=== PATIENT | female | born 1975 | race Hispanic/Latino ===

== ENCOUNTER 2018-07-10 18:22 | Emergency (ER) | payer BC, OTHER ==
--- NOTE | 2018-07-10 19:33 | RAD REPORT ---
EXAM DESCRIPTION: RAD - Chest Pa And Lat (2 Views) - 07/10/2018 7:27 pm CLINICAL HISTORY: Chest pain, chest tightness COMPARISON: None. TECHNIQUE: PA and lateral views of the chest were obtained. FINDINGS: The lungs are clear. Heart size is normal and central vasculature is within normal limit s. No pleural effusion or pneumothorax seen. No acute bony finding noted. No aortic abnormality. IMPRESSION: No acute cardiopulmonary process.
[2018-07-10 20:21] LABS: ALT/SGPT 40 U/L (12-78); AST/SGOT 16 U/L (15-37); Albumin 3.6 g/dL (3.4-5.0); Alkaline Phosphatase 75 U/L (45-117); BUN Blood Urea Nitrogen 11 mg/dL (7-18); Bicarbonate 22 mmol/L (21-32); Bilirubin Direct < 0.1 mg/dL (0-0.2); Bilirubin Total 0.3 mg/dL (0.2-1.0); Glucose Level 110 mg/dL (74-106); Magnesium 2.4 mg/dL (1.8-2.4); NT PRO-BNP 52 pg/mL (<125); Potassium 3.6 mmol/L (3.5-5.1); Protein, Total 8.1 g/dL (6.4-8.2); Sodium Level 145 mmol/L (136-145); Troponin (Emerg Dept Use Only) < 0.02 ng/mL (0.0-0.045)
[2018-07-10 20:30] LABS: Absolute Lymphocytes (CBC) 1.4 K/uL (0.7-4.9); Absolute Monocytes 0.3 K/uL (0.1-1.3); Absolute Neutrophil 4.1 K/uL (1.8-8.0); Basophils % 0.5 % (0-1.3); Eosinophils % 0.6 % (0-4.4); Hematocrit 35.5 % (36.0-45.0); Lymphocytes % 24.2 % (15.3-44.8); MCH 23.5 pg (27.0-35.0); MCV 74.3 fL (80-100); MPV 8.7 fL (7.6-11.3); Monocytes % 5.2 % (3.3-12.3); RBC Red Blood Cell Count 4.77 M/uL (3.86-4.86)
[2018-07-10 20:32] LABS: Protime INR 1.07
[2018-07-10 22:55] LABS: Urine Blood 3+ (NEG); Urine Glucose NEGATIVE (NEG); Urine Protein NEGATIVE (NEG); Urine Specific Gravity 1.015 (1.005-1.030); Urine pH 7.5 (5.0-7.0)
--- NOTE | 2018-07-10 23:49 | ER ---
Nurse's Notes [facility] Name: Mary Ibarra Age: 42 yrs Sex: Female : 1975 Arrival Date: 07/10/2018 Time: 18:24 Bed 18 Private MD: Diagnosis: Dyspnea;Syncope and collapse Presentation: 07/10 18:31 Presenting complaint: EMS states: called out for chest tightness and shortness of em breath that started about an hour ago, denies nausea/vomiting/pain/ fever, received a blood transfusion on Wednesday, HGB 7.6. Transition of care: patient was not received from another setting of care. Onset of symptoms was July 10, 2018. Risk Assessment: Do you want to hurt yourself or someone else? Patient reports no desire to harm self or others. Initial Sepsis Screen: Does the patient meet any 2 criteria? No. Patient's initial sepsis screen is negative. Does the patient have a suspected source of infection? No. Patient's initial sepsis screen is negative. Care prior to arrival: None. 18:31 Method Of Arrival: EMS: [facility] em 18:47 Acuity: BIB 3 la1 Triage Assessment: 18:34 General: Appears uncomfortable, Behavior is cooperative, anxious. Pain: Complains of em pain in mid-sternal area Pain does not radiate. 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 - Social history:: Smoking status: Patient/guardian denies using tobacco. - Ebola Screening: : Patient negative for fever greater than or equal to 101.5 degrees Fahrenheit, and additional compatible Ebola Virus Disease symptoms Patient denies exposure to infectious person Patient denies travel to an Ebola-affected area in the 21 days before illness onset No symptoms or risks identified at this time. Screenin:37 Abuse screen: Denies threats or abuse. Nutritional screening: No deficits noted. em Tuberculosis screening: No symptoms or risk factors identified. Fall Risk None identified. Assessment: 18:26 General: Appears in no apparent distress. uncomfortable, Behavior is calm, anxious. em Pain: Denies pain. Neuro: Level of Consciousness is awake, alert, obeys commands, Oriented to person, place, time, situation. Cardiovascular: Reports shortness of breath, tightness Denies chest pain, nausea, vomiting, Heart tones S1 S2 present Capillary refill < 3 seconds Patient's skin is warm and dry. Rhythm is sinus rhythm. Respiratory: Reports shortness of breath on exertion Airway is patent Respiratory effort is even, unlabored, Respiratory pattern is regular, symmetrical, Breath sounds are clear bilaterally. GI: Abdomen is flat. : No signs and/or symptoms were reported regarding the genitourinary system. EENT: No signs and/or symptoms were reported regarding the EENT system. Derm: Skin is intact, is healthy with good turgor, Skin is dry, Skin is pale. Musculoskeletal: Range of motion: intact in all extremities. 18:30 Reassessment: I agree with previous assessment. hb 19:45 Reassessment: Patient appears in no apparent distress at this time. General: Appears in lp1 no apparent distress. comfortable. Pain: Denies pain. Neuro: Level of Consciousness is awake, alert, obeys commands. Respiratory: Respiratory effort is even, unlabored. Derm: Skin is intact, Skin is dry, Skin is normal. 21:00 Reassessment: Patient appears in no apparent distress at this time. Patient and/or lp1 family updated on plan of care and expected duration. Pain level reassessed. Patient is alert, oriented x 3, equal unlabored respirations, skin warm/dry/pink. 22:00 Reassessment: Patient appears in no apparent distress at this time. No changes from lp1 previously documented assessment. Patient and/or family updated on plan of care and expected duration. Pain level reassessed. 23:00 Reassessment: Patient appears in no apparent distress at this time. Patient is alert, lp1 oriented x 3, equal unlabored respirations, skin warm/dry/pink. Patient states feeling better. Patient states symptoms have improved. Vital Signs: 18:35 BP 108 / 70; Pulse 71; Resp 18; Pulse Ox 100% on R/A; Weight 67.13 kg; Height 5 ft. 0 em in. (152.40 cm); Pain 0/10; 18:36 Temp 98.6(O); em 19:30 BP 107 / 65; Pulse 78; Resp 20; Pulse Ox 99% on R/A; lp1 21:30 BP 107 / 71; Pulse 72; Resp 18; Pulse Ox 99% on R/A; lp1 23:30 BP 104 / 77; Pulse 74; Resp 16; Pulse Ox 100% on R/A; lp1 18:35 Body Mass Index 28.90 (67.13 kg, 152.40 cm) em ED Course: 18:24 Patient arrived in ED. as 18:25 Maria Victoria Fong FNP-C is PHCP. kb 18:25 Cm Reyes MD is Attending Physician. kb 18:27 Erich Tan LVN is Primary Nurse. em 18:35 Arm band placed on. em 18:37 Patient has correct armband on for positive identification. Placed in gown. Bed in low em position. Call light in reach. Side rails up X2. Adult w/ patient. 18:45 EKG done, by ED staff, reviewed by Maria Victoria GUTIERREZ. dh3 18:47 Triage completed. la1 19:05 X-ray completed. Patient tolerated procedure well. la2 19:51 Inserted saline lock: 20 gauge in right antecubital area, using aseptic technique. lp1 Blood collected. By JAGJIT Jung. 20:40 Notified Nurse Practitioner and/or Physician Fireworks Assembly Supervisor of a critical lab result(s), lp1 D-Dimer 969. 22:18 PHCP role handed off by Maria Victoria Fong FNP-C [facility] 22:18 Paulino Dillon PA is PHCP. [facility] 23:30 No provider procedures requiring assistance completed. lp1 07/11 00:10 IV discontinued, No redness/swelling at site. Pressure dressing applied. lp1 Administered Medications: No medications were administered Outcome: 07/10 23:48 Discharge ordered by . [facility] 07/11 00:10 Discharged to home ambulatory, with significant other. lp1 Condition: good Discharge instructions given to patient, Instructed on discharge instructions, follow up and referral plans. Demonstrated understanding of instructions, follow-up care. 00:10 Patient left the ED. lp1 Signatures: Maria Victoria Fong FNP-C FNP-Ckb Mickail, Joel, PA PA [facility] Tan, Erich, HOSPICE SOCIAL WORKER Mary Lou Pulliam Laura, RN RN lp1 Med Stephens RN RN la1 Tammy Ward RN RN Melly Nunes [facility] Izzy Ames
--- NOTE | 2018-07-10 23:49 | EDPHYS ---
Physician Documentation [facility] Name: Mary Ibarra Age: 42 yrs Sex: Female : 1975 Arrival Date: 07/10/2018 Time: 18:24 Bed 18 Private MD: ED Physician Cm Reyes HPI: 07/10 22:12 This 42 yrs old Female presents to ER via EMS with complaints of Shortness Of kb Breath. 22:12 The patient has shortness of breath at rest. Onset: The symptoms/episode began/occurred kb just prior to arrival. Duration: The symptoms are continuous. The patient's shortness of breath has no apparent modifying factors. Associated signs and symptoms: Pertinent positives: This patient does not have any pertinent positive signs or symptoms associated with shortness of breath. Severity of symptoms: At their worst the symptoms were mild moderate in the emergency department the symptoms are unchanged. The patient has not experienced similar symptoms in the past. The patient has been recently seen by a physician:. 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 States it feels tight when she's trying to take a breath in, like her lungs can't expand. Denies any other symptoms. Reports blood transfusion on Wednesday due to vaginal bleeding from fibroids. . STUDIO GRIP: 18:35 LMP 07/10/2018 em Historical: - Allergies: 18:34 Vicodin; em 18:34 Codeine; em 18:34 Diflucan; em - PMHx: 18:34 Lupus; Anemia; em - PSHx: 18:34 Cholecystectomy; ; em - Immunization history:: Last tetanus immunization: not immunized. - Social history:: Smoking status: Patient/guardian denies using tobacco. - Ebola Screening: : Patient negative for fever greater than or equal to 101.5 degrees Fahrenheit, and additional compatible Ebola Virus Disease symptoms Patient denies exposure to infectious person Patient denies travel to an Ebola-affected area in the 21 days before illness onset No symptoms or risks identified at this time. ROS: 22:12 Constitutional: Negative for fever, chills, and weight loss, ENT: Negative for injury, kb pain, and discharge, Neck: Negative for injury, pain, and swelling, Cardiovascular: Negative for chest pain, palpitations, and edema, Abdomen/GI: Negative for abdominal pain, nausea, vomiting, diarrhea, and constipation, Back: Negative for injury and pain, : Negative for injury, bleeding, discharge, and swelling, MS/Extremity: Negative for injury and deformity, Skin: Negative for injury, rash, and discoloration, Neuro: Negative for headache, weakness, numbness, tingling, and seizure. 22:12 Respiratory: Positive for shortness of breath, Negative for cough, dyspnea on exertion, hemoptysis, orthopnea, pleurisy, sputum production, wheezing. Exam: 22:12 Constitutional: This is a well developed, well nourished patient who is awake, alert, kb and in no acute distress. Head/Face: Normocephalic, atraumatic. ENT: Nares patent. No nasal discharge, no septal abnormalities noted. Tympanic membranes are normal and external auditory canals are clear. Oropharynx with no redness, swelling, or masses, exudates, or evidence of obstruction, uvula midline. Mucous membranes moist. Neck: Trachea midline, no thyromegaly or masses palpated, and no cervical lymphadenopathy. Supple, full range of motion without nuchal rigidity, or vertebral point tenderness. No Meningismus. Chest/axilla: Normal chest wall appearance and motion. Nontender with no deformity. No lesions are appreciated. Cardiovascular: Regular rate and rhythm with a normal S1 and S2. No gallops, murmurs, or rubs. Normal PMI, no JVD. No pulse deficits. Respiratory: Lungs have equal breath sounds bilaterally, clear to auscultation and percussion. No rales, rhonchi or wheezes noted. No increased work of breathing, no retractions or nasal flaring. Abdomen/GI: Soft, non-tender, with normal bowel sounds. No distension or tympany. No guarding or rebound. No evidence of tenderness throughout. Back: No spinal tenderness. No costovertebral tenderness. Full range of motion. Skin: Warm, dry with normal turgor. Normal color with no rashes, no lesions, and no evidence of cellulitis. MS/ Extremity: Pulses equal, no cyanosis. Neurovascular intact. Full, normal range of motion. Neuro: Awake and alert, GCS 15, oriented to person, place, time, and situation. Cranial nerves II-XII grossly intact. Motor strength 5/5 in all extremities. Sensory grossly intact. Cerebellar exam normal. Normal gait. Vital Signs: 18:35 BP 108 / 70; Pulse 71; Resp 18; Pulse Ox 100% on R/A; Weight 67.13 kg; Height 5 ft. 0 em in. (152.40 cm); Pain 0/10; 18:36 Temp 98.6(O); em 19:30 BP 107 / 65; Pulse 78; Resp 20; Pulse Ox 99% on R/A; lp1 21:30 BP 107 / 71; Pulse 72; Resp 18; Pulse Ox 99% on R/A; lp1 23:30 BP 104 / 77; Pulse 74; Resp 16; Pulse Ox 100% on R/A; lp1 18:35 Body Mass Index 28.90 (67.13 kg, 152.40 cm) em MDM: 18:25 Patient medically screened. [facility] 18:29 Data reviewed: vital signs, nurses notes. kb 22:12 Data interpreted: Pulse oximetry: on room air is 99 %. Interpretation: normal. kb 22:15 ED course: Pt feeling better at this time. No resp distress noted. Awaiting CT results. kb 07/10 18:27 Order name: Basic Metabolic Panel; Complete Time: 20:23 kb 07/10 18:27 Order name: CBC with Diff; Complete Time: 20:33 kb 07/10 18:27 Order name: LFT's; Complete Time: 20:23 kb 07/10 18:27 Order name: Magnesium; Complete Time: 20:23 kb 07/10 18:27 Order name: NT PRO-BNP; Complete Time: 20:23 kb 07/10 18:27 Order name: PT-INR; Complete Time: 20:40 kb 07/10 18:27 Order name: Troponin (emerg Dept Use Only); Complete Time: 20:23 kb 07/10 20:40 Order name: D-Dimer; Complete Time: 20:40 EDMS 07/10 21:33 Order name: Urine Dipstick--Ancillary (enter results) em1 07/10 21:33 Order name: Urine --Ancillary (enter results) em1 07/10 22:55 Order name: Urine --Ancillary; Complete Time: 23:24 EDMS 07/10 22:55 Order name: Urine Dipstick-Ancillary; Complete Time: 23:24 EDMS 07/10 18:27 Order name: EKG; Complete Time: 19:36 kb 07/10 18:27 Order name: Cardiac monitoring; Complete Time: 19:03 kb 07/10 18:27 Order name: EKG - Nurse/Tech; Complete Time: 19:02 kb 07/10 18:27 Order name: IV Saline Lock; Complete Time: 19:53 kb 07/10 18:27 Order name: Labs collected and sent; Complete Time: 19:53 kb 07/10 18:27 Order name: O2 Per Protocol; Complete Time: 19:53 kb 07/10 18:27 Order name: O2 Sat Monitoring; Complete Time: 19:53 kb 07/10 19:34 Order name: RAD; Complete Time: 19:37 EDOR 07/10 20:41 Order name: CT Chest For PE Angio kb Administered Medications: No medications were administered Disposition: 07/11 07:42 Co-signature as Attending Physician, Cm Reyes MD I agree with the assessment and иван plan of care. Disposition: 07/10/18 23:48 Discharged to Home. Impression: Dyspnea, Syncope and collapse. - Condition is Stable. - Discharge Instructions: Near-Syncope, Shortness of Breath. - Medication Reconciliation Form, Thank You Letter, Antibiotic Education, Prescription Opioid Use form. - Follow up: Private Physician; When: 2 - 3 days; Reason: Recheck today's complaints, Continuance of care, Re-evaluation by your physician. - Notes: Please follow up with cardiology for further evaluation. Please return to the ED if you develop worsening shortness of breath, chest pain or any other concerning symptoms. Signatures: Dispatcher [employer] [facility] Maria Victoria Fong, COMPLAINT EVALUATION OFFICER-C COMPLAINT EVALUATION OFFICER-Ckb Cm Reyes MD MD cha Mickail, Joel PA PA tutum Erich Tan, CHEF DE FROID CHEF DE FROID Radha Smiley, RN RN lp1 Corrections: (The following items were deleted from the chart) 07/10 19:56 19:36 Chest Pa And Lat (2 Views)+RAD.RAD.BRZ ordered. 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 Denies any other symptoms. kb Reports blood transfusion on Wednesday due to vaginal bleeding from fibroids. . kb 07/11 00:10 07/10 23:48 07/10/2018 23:48 Discharged to Home. Impression: Dyspnea; Syncope and lp1 collapse. Condition is Stable. Forms are Medication Reconciliation Form, Thank You Letter, Antibiotic Education, Prescription Opioid Use. Follow up: Private Physician; When: 2 - 3 days; Reason: Recheck today's complaints, Continuance of care, Re-evaluation by your physician. rocio
--- NOTE | 2018-07-11 07:39 | EKG ---
Test Date: 2018-07-10 Test Time: 18:47:36 Stripper And Printer: JEROMY MEASUREMENT RESULTS: Intervals: Rate: 74 IL: 124 QRSD: 72 QT: 396 QTc: 439 Eugene: P: 31 IL: 124 QRS: 57 T: 49 INTERPRETIVE STATEMENTS: Normal sinus rhythm Normal ECG No previous ECG available for comparison Electronically Signed On 07-11-18 07:38:36 [employer] by Torsten Webb
--- NOTE | 2018-07-11 07:49 | RAD REPORT ---
EXAM DESCRIPTION: CT - Chest For Pe Angio - 07/10/2018 10:13 pm CLINICAL HISTORY: Chest pain and shortness of breath COMPARISON: None. TECHNIQUE: Dynamically enhanced axial 3 mm thick images of the chest were obtained during administra tion of <100> mL Isovue 370 IV contrast. Coronal and oblique reconstruction images were generated and reviewed. Exam utilizes a protocol for optimal evaluation of pulmonary arterial tree. Maximum intensity projections 3D imaging was utilized All CT scans are performed using dose optimization technique as appropriate and may include automated exposure control or mA/KV adjustment according to patient size. FINDINGS: A pulmonary embolus is not seen. A thoracic aortic aneurysm is not noted. A pleural effusion is not seen. A pericardial effusion is not seen. A lung consolidation is not present. IMPRESSION: Negative for a pulmonary embolism.
== END 2018-07-11 00:10 | disposition home or self-care (01) ==
LOC: ER 18:22
DX: R55 Syncope and collapse (principal); Z88.5 Allergy status to narcotic agent; Z88.8 Allergy status to other drugs, medicaments and biological substances
CPT/HCPCS: 36415; 71046; 71275; 80048; 80076; 81003; 81025; 83735; 83880; 84484; 85025; 85379; 85610; 93005; 99284; Q9967

== ENCOUNTER 2020-05-21 14:03 | Emergency (ER) | payer BC ==
--- OUTSIDE RECORDS SUMMARY | 2020-05-21 14:20 | XMS REPORT | Summary of Care ---
:1975 Author Organization [facility] Address [address] [place] [id number] Care Team Providers Name Role Phone Pcp, Patient Does Not Have A Primary Care Provider +1-000-00 0-0000 Reason for Visit Reason Comments Results Encounter Details Date Type Department Care Team Description 04/24/2020 Telephone [facility] Family Medicine Provider, [facility] Urgent Results - [address] [place] [address] Allergies Active Allergy Reactions Severity Noted Date Comments Codeine Nausea and/or Vomiting 03/05/2018 Hydrocodone-Acetaminophen Hallucinations 03/05/2018 documented as of this encounter (statuses as of 04/25/2020) Medications Medication Sig Dispensed Refills Start End Status Date Date mirabegron (MYRBETRIQ) Myrbetriq 25 mg tablet,extended release 0 Active 25 mg tablet Take 1 tablet every day by oral route. cholestyramine 4 gram 0 Active powder 0 hydrOXYchloroQUINE 200 hydroxychloroquine 200 0 03/09 Active mg tablet mg tablet 0 metoclopramide HCl Take 1 tablet by mouth 32 tablet 0 04/19/20 2 Active (REGLAN) 10 mg every 6 (six) hours as 0 02 0 tabletIndications: needed for Nausea and Nausea Vomiting (N/V) for up to 10 days. documented as of this encounter (statuses as of 04/25/2020) Active Problems No known active problemsdocumented as of this encounter (statuses as of 04/25/2020) Social History Tobacco Use Types Packs/Day Years Used Date Never Smoker Smokeless Tobacco: Never Used Sex Assigned at Date Recorded Not on file COVID-19 Exposure Response Date Recorded In the last month, have you been in contact with No / Unsure 04/19/2020 8:31 AM CDT someone who was confirmed or suspected to have Coronavirus / COVID-19? documented as of this encounter Last Filed Vital Signs Not on filedocumented in this encounter Miscellaneous Notes Telephone Encounter - Ariella Ferrer RN - 04/25/2020 3:28 PM CDTSpoke with patient Mary Ibarra DOB verified 1975. States that she called back yesterday because she received a message from a nurse regarding lab results. Pt informed of notes made by MOON Norris on 04/19/2020 4:51 PM " to let patient know, in addition to her UTI, her K+ is slightly elevated, force fluids and repeat within 1 week ". Patient reports that she already followed up with her Educational Administration Teacher. Patient also notified that she can follow up with PCP and to repeat the electrolytes, ifany chest pains or cardiac symptoms, go to the ER and the ULTRASONIC SOLDERER has sent antibiotics to her pharmacy. 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 elephone Encounter - Mary Alvarez - 04/24/2020 11:23 AM CDTPatient is returning a call regarding her lab results and is requesting a call back. documented in this encounter Plan of Treatment Health Maintenance Due Date Last Done Comments PNEUMOCOCCAL 0-64 YEARS COMBINED SERIES (1 1982 of 3 - PCV13) Depression Screening 1988 DTaP,Tdap,and Td Vaccines (1 - Tdap) 1995 PAP SMEAR 1997 Breast Cancer Screening (MAMMOGRAM) 2016 INFLUENZA VACCINE (#1) 2020 06/09/2019, 07/05/2017 documented as of this encounter Results Not on filedocumented in this encounter Insurance Payer Benefit Plan Subscriber ID Effective Dates Phone Address Type / Group BCBS OF [facility] [id number] 2019-Tiffanie [phone] [address] PPO/POS [place] [id number] [place] [address] CIGNA CIGNA GENERIC [id number] 2019-Tiffanie HMO/PPO/P t OS documented as of this encounter
--- OUTSIDE RECORDS SUMMARY | 2020-05-21 14:20 | XMS REPORT | Summary of Care ---
:1975 Author Organization [facility] Address [address] [place] [id number] Care Team Providers Name Role Phone Pcp, Patient Does Not Have A Primary Care Provider +1-000-00 0-0000 Reason for Visit Reason Comments LAB WORK Encounter Details Date Type Department Care Team Description 04/19/2020 Php Website Developer Visit [facility] Joanna Paiz, RUBBER ENGRAVER [address] [place] [phone] Laboratory Medicine - [facility], [facility] Fam Pob I examination ordered [address] [place] [address] as part [place] examination [id number] Allergies Active Allergy Reactions Severity Noted Date Comments Codeine Nausea and/or Vomiting 03/05/2018 Hydrocodone-Acetaminophen Hallucinations 03/05/2018 documented as of this encounter (statuses as of 04/19/2020) Medications Medication Sig Dispensed Refills Start End [...] as of this encounter (statuses as of 04/19/2020) Active Problems No known active problemsdocumented as of this encounter (statuses as of 04/19/2020) Social History Tobacco Use Types Packs/Day Years [...] Signs Not on filedocumented in this encounter Nursing Notes Hillary Iverson - 04/19/2020 9:10 AM CDT Venipuncture collection performed by clean technique on the left anticubitus. Total of 1 attempts were made. Slight pressure and a bandage/dressing were applied to the site(s). The patient experienced no complications. The following specimens were processed according to instructions and sent to [facility] laboratories per lab order on today: LT BLUE SST 1 RED LAV 1 PPT DK GREEN (LiHep) DK GREEN (SodH) SALGUERO DK BLUE (K2) DK BLUE (S) ACD Blood Culture NIPT/NTD Patient has been identified by and name and was provided with cup, antiseptic towelette, and clean catch instructions. 3 urine specimen(s) sent. Unpreserved 2 Urine Culture 1 Aptima tube Other urine documented in this encounter Plan of Treatment Date Type Specialty Care Team Description 04/19/2020 Hospital Encounter Radiology Laura Paiz, RUBBER ENGRAVER [address] [phone] Health Maintenance Due Date Last Done Comments PNEUMOCOCCAL 0-64 YEARS COMBINED SERIES (1 of 3 - 1982 PCV13) Depression Screening 1988 DTaP,Tdap,and Td Vaccines (1 - Tdap) 1995 PAP SMEAR 1997 Breast Cancer Screening (MAMMOGRAM) 2016 INFLUENZA VACCINE (#1) 2020 documented as of this encounter Results Not on filedocumented in this encounter Visit Diagnoses Diagnosis Laboratory examination ordered as part o f a routine general medical examination documented in this encounter Insurance Payer Benefit Plan Subscriber ID Effective Dates Phone Address Type / Group BCBS OF [facility] [id number] 2019-Tiffanie [phone] [address] PPO/POS [place] t [id number] [place] [address] CIGNA CIGNA GENERIC [id number] 2019-Tiffanie HMO/PPO/P t OS documented as of this encounter
--- OUTSIDE RECORDS SUMMARY | 2020-05-21 14:20 | XMS REPORT | Summary of Care ---
:1975 Author Organization [facility] - Health Address [address] [place] [address] Care Team Providers Name Role Phone Pcp, Patient Does Not Have A Primary Care Provider +[id number] 0-0000 Encounter Details Date Type Department Care Team Description 04/19/2020 Orders Only [facility] Doctor Unassigned, No [address] [place] [address] [address] [place] [address] Allergies Active Allergy Reactions Severity Noted Date Comments Codeine Nausea and/or Vomiting 03/05/2018 Hydrocodone-Acetaminophen Hallucinations 03/05/2018 documented as of this encounter (statuses as of 04/19/2020) Medications No known medicationsdocumented as of this encounter (statuses as of 04/19/2020) Active Problems Not on filedocumented as of this encounter (statuses as of 04/19/2020) Social History Tobacco Use Types Packs/Day Years Used Date Never Assessed Sex Assigned at Date Recorded Not on file documented as of this encounter Last Filed Vital Signs Not on filedocumented in this encounter Plan of Treatment Date Type Specialty Care Team Description 04/19/2020 Urgent Care Family Medicine Natalie Paiz FNP [address] [place] [phone] Provider, [facility] Health Maintenance Due Date Last Done Comments Depression Screening 1988 DTaP,Tdap,and Td Vaccines (1 - 1995 Tdap) PAP SMEAR 1997 Breast Cancer Screening 2016 (MAMMOGRAM) INFLUENZA VACCINE (#1) 2020 PNEUMOCOCCAL 0-64 YEARS COMBINED Aged Out No longer eligible based on SERIES patient's age to complete this topic documented as of this encounter Procedures Procedure Name Priority Date/Time Associated Diagnosis Comme nts ASSIGNMENT OF BENEFITS Routine 04/19/2020 8:30 AM CDT documented in this encounter Results Not on filedocumented in this encounter Insurance Payer Benefit Plan Subscriber ID Effective Dates Phone Address Type / Group BCBS OF BCBS [facility] [id number] 2019-Tiffanie [phone] [address] PPO/POS [facility] [id number] [place] [address] documented as of this encounter
--- OUTSIDE RECORDS SUMMARY | 2020-05-21 14:20 | XMS REPORT | Summary of Care ---
:1975 Author Organization [facility] - [facility] Address [address] [place] [id number] Care Team Providers Name Role Phone Pcp, Patient Does Not Have A Primary Care Provider +[id number] 0-0000 Reason for Visit Reason Comments Exposure LAB Encounter Details Date Type Department Care Team Description 05/08/2020 Laboratory Only [facility] Family Laura Paiz, MEDICAL INSTRUMENT CABLE FABRICATOR [address] [place] [address] Exposure to Medicine - [facility], Adc Fam Pob I SARS-associated [address] [place] [address] coronaviru s ([address] Drive Dx) [place] [address] Allergies Active Allergy Reactions Severity Noted Date Comments Codeine Nausea and/or Vomiting 03/05/2018 Hydrocodone-Acetaminophen Hallucinations 03/05/2018 documented as of this encounter (statuses as of 05/08/2020) Medications Medication Sig Dispensed Refills Start End Status Date Date mirabegron (MYRBETRIQ) Myrbetriq 25 mg tablet,extended release 0 Active 25 mg tablet Take 1 tablet every day by oral route. cholestyramine 4 gram 0 Active powder 0 hydrOXYchloroQUINE 200 hydroxychloroquine 200 0 03/09 Active mg tablet mg tablet 0 documented as of this encounter (statuses as of 05/08/2020) Active Problems No known active problemsdocumented as of this encounter (statuses as of 05/08/2020) Social History Tobacco Use Types Packs/Day Years Used Date Never Smoker Smokeless Tobacco: Never Used Sex Assigned at Date Recorded Not on file COVID-19 Exposure Response Date Recorded In the last month, have you been in contact with Yes 05/08/2020 10:08 AM CDT someone who was confirmed or suspected to have Coronavirus / COVID-19? documented as of this encounter Last Filed Vital Signs Not on filedocumented in this encounter Nursing Notes Heaven Nelson MA - 05/08/2020 10:00 AM CDTMary Ibarra is a 44 year old female here for COVID Screening with a Nasopharyngeal Swab All droplet and contact precautions taken with appropriate PPE worn while interacting with patient. ? Goggles ? N95 Mask ? Gloves ? Gown RR 16 Pulse 101 Ox 98% Patient educated on plan of care for visit, swabbing technique, risks and benefits of test and length of time to receive results. Verbal consent obtained to perform test. CDC Fact Sheet for Patients nCoV Diagnostic Panel dated 10/22/2019 and Factsheet What to Do if Sick with COVID 19 10/02/19 provided. Bilate nares swabbed during COVID19 nasopharyngeal swab. Patient swabbed per appropriate nasopharyngeal technique, and patient tolerated well. Patient was discharged from the testing clinic in stable condition. HEAVEN NELSON MA 05/08/2020 10:07 AM documented in this encounter Plan of Treatment Name Type Priority Associated Diagnoses Order S chedule COVID-19 (PCR MOLECULAR LAB Routine Exposure to Expe cted: 05/08/2020, TESTING) SARS-associated Expires: coronavirus Health Maintenance Due Date Last Done Comments PNEUMOCOCCAL 0-64 YEARS COMBINED SERIES (1 1982 of 3 - PCV13) Depression Screening 1988 DTaP,Tdap,and Td Vaccines (1 - Tdap) 1995 PAP SMEAR 1997 Breast Cancer Screening (MAMMOGRAM) 2016 INFLUENZA VACCINE (#1) 2020 06/09/2019, 07/05/2017 documented as of this encounter Results Not on filedocumented in this encounter Visit Diagnoses Diagnosis Exposure to SARS-associated coronavirus - Primary documented in this encounter Additional Health Concerns Infection Onset Date Last Indicated Resolved Time COVID-19 Rule Out 05/08/2020 05/08/2020 documented as of this encounter Insurance Payer Benefit Plan Subscriber ID Effective Dates Phone Address Type / Group [employer] [employer] [place] [id number] 2019-Tiffanie [phone] [address] PPO/POS [place] [id number] [place] [address] documented as of this encounter
--- OUTSIDE RECORDS SUMMARY | 2020-05-21 14:20 | XMS REPORT | Summary of Care ---
:1975 Author Organization [facility] Address [address] [place] [address] Care Team Providers Name Role Phone Pcp, Patient Does Not Have A Primary Care Provider +1-000-00 0-0000 Reason for Referral MRI/CAT Scan (STAT) Status Reason Specialty Diagnoses / Referred By Referred To Procedures Contact Contact Closed Diagnostic Diagnoses Left lower quadrant abdominal pain Natalie Paiz, Radiology Procedures CT ABDOMEN PELVIS WO CONTRAST MEDICAL FIELD REPRESENTATIVE [address] [place] [phone] Reason for Visit Auth/Cert Status Reason Specialty Diagnoses / Procedures Referred By Gabe linder Referred To Contact Radiology [facility] [address] [place] [address] Phone: Fax: Encounter Details Date Type Department Care Team Description 04/19/2020 Hospital Encounter Critical access hospital Gabe Paiz, MEDICAL FIELD REPRESENTATIVE Arrived [place] [facility] [address] [facility] [id number] [facility] [place] [address] Allergies Active Allergy Reactions Severity Noted Date Comments Codeine Nausea and/or Vomiting 03/05/2018 Hydrocodone-Acetaminophen Hallucinations 03/05/2018 documented as of this encounter (statuses as of 04/20/2020) Medications Medication Sig Dispensed Refills Start End Status Date Date mirabegron (MYRBETRIQ) Myrbetriq 25 mg tablet,extended release 0 Active 25 mg tablet Take 1 tablet every day by oral route. cholestyramine 4 gram 0 02/19/20 Active powder 20 hydrOXYchloroQUINE 200 hydroxychloroquine 200 0 03/09 08/28 Active mg tablet mg tablet 20 metoclopramide HCl Take 1 tablet by mouth 32 tablet 0 04/19/20 Active (REGLAN) 10 mg every 6 (six) hours as 20 02 0 tabletIndications: needed for Nausea and Nausea Vomiting (N/V) for up to 10 days. Nitrofurantoin&Nit. Take 1 capsule by 10 capsule 0 04/19/20 0 Active Macrocryst (MACROBID) mouth 2 (two) times 20 020 100 mg daily for 5 days. capsuleIndications: Acute cystitis without hematuria documented as of this encounter (statuses as of 04/20/2020) Active Problems No known active problemsdocumented as of this encounter (statuses as of 04/20/2020) Social History Tobacco Use Types Packs/Day Years [...] filedocumented in this encounter Plan of Treatment Health Maintenance Due Date Last Done Comments PNEUMOCOCCAL 0-64 YEARS COMBINED SERIES (1 of 3 - 1982 PCV13) Depression Screening 1988 DTaP,Tdap,and Td Vaccines (1 - Tdap) 1995 PAP SMEAR 1997 Breast Cancer Screening (MAMMOGRAM) 2016 INFLUENZA VACCINE (#1) 2020 documented as of this encounter Procedures Procedure Name Priority Date/Time Associated Comments Diagnosis CT ABDOMEN PELVIS WO STAT 04/19/2020 1:17 PM Left lower qu adrant Results for this CONTRAST CDT abdominal pain procedure are in the results section. NOTICE OF PRIVACY Routine 04/19/2020 12:56 PM PRACTICES CDT CONSENT/REFUSAL FOR Routine 04/19/2020 12:56 PM DIAGNOSIS AND CDT TREATMENT ASSIGNMENT OF Routine 04/19/2020 12:55 PM BENEFITS CDT documented in this encounter Results CT ABDOMEN PELVIS WO CONTRAST (04/19/2020 1:17 PM CDT) Specimen Impressions Performed At PACS/VR/DOSE 1. Mild circumferential rectal wall thickening with subtle adjacent fat stranding, which can be seen in the sett ing of proctitis. 2. Indeterminate 3.5 cm left ovarian m ass. Please consider further evaluation with pelvic ultrasound. Preliminary Report Dictated by Resident: Lauren Larson MD., have reviewe d this study and agree with the above report. Narrative Performed At EXAM: CT ABDOMEN/PELVIS WITHOUT CONTRAST PACS/VR/DOSE HISTORY: Abd pain, diverticulitis susp ected Nausea, vomiting Abd pain, gastroenteritis or colitis suspected lef t lower the urinary bladder is mildly distended, unremarkable. The uterus pain, s/p c holecystectomy among others COMPARISON: None. TECHNIQUE AND FINDINGS: Contiguous axial imaging from the level of the lung bases through the proximal thighs was pe rformed without the intravenous administration of contrast. Coronal and sagittal reconstructions were obtained. Auto mA and/or iterative rec onstruction were used to reduce radiation dose. FINDINGS: LOWER THORAX: The lungs bases are clear. LIVER: No focal hepatic lesions within t he confinement of noncontrast study. Normal liver contour. GALLBLADDER AND BILIARY TREE: Prior chol ecystectomy. No biliary ductal dilatation. SPLEEN: No splenomegaly. PANCREAS: No ductal dilation or contour deforming masses. ADRENAL GLANDS: No adrenal nodules. KIDNEYS: No hydronephrosis, stones, or c ontour deforming masses. PERITONEUM AND RETROPERITONEUM: No free air or fluid. LYMPH NODES: No lymphadenopathy. GI TRACT: No dilation or wall thickening . The appendix is normal. Mild circumferential rectal wall thickening. Subtle perirectal fat standing. PELVIS/BLADDER: The urinary bladder is moderately dist ended, unremarkable. Prior hysterectomy, likely with retained cervix. A 3.5 cm hypodense left ovarian mass with indeterminate attenuat ion (29HU). VESSELS: Unremarkable. BONES AND SOFT TISSUES: No suspicious lytic or sclerot ic bony lesions. Mild bilateral sacroiliitis. Procedure Note [facility], Radiant Results Inft User - 2019 2:13 PM CDT EXAM: CT ABDOMEN/PELVIS WITHOUT CONTRAST HISTORY: Abd pain, diverticulitis suspe cted Nausea, vomiting Abd pain, gastroenteritis or colitis suspected lef t lower the urinary bladder is mildly distended, unremarkable. The uter us pain, s/p cholecystectomy among others COMPARISON: None. TECHNIQUE AND FINDINGS: Contiguous axial imaging from the level of the lung bases through the proximal thighs was pe rformed without the intravenous administration of contrast. Coronal and sagittal reconstructions were obtained. Auto mA and/or iterative gisselle nstruction were used to reduce radiation dose. FINDINGS: LOWER THORAX: The lungs bases are clear. LIVER: No focal hepatic lesions within t he confinement of noncontrast study. Normal liver contour. GALLBLADDER AND BILIARY TREE: Prior chol ecystectomy. No biliary ductal dilatation. SPLEEN: No splenomegaly. PANCREAS: No ductal dilation or contour deforming masses. ADRENAL GLANDS: No adrenal nodules. KIDNEYS: No hydronephrosis, stones, or c ontour deforming masses. PERITONEUM AND RETROPERITONEUM: No free air or fluid. LYMPH NODES: No lymphadenopathy. GI TRACT: No dilation or wall thickening . The appendix is normal. Mild circumferential rectal wall thickening. Subtle perirectal fat standing. PELVIS/BLADDER: The urinary bladder is m oderately distended, unremarkable. Prior hysterectomy, likely with retained cervix. A 3.5 cm hypodense left ovarian mass with indeterminate attenuat ion (29HU). VESSELS: Unremarkable. BONES AND SOFT TISSUES: No suspicious ly tic or sclerotic bony lesions. Mild bilateral sacroiliitis. IMPRESSION 1. Mild circumferential rectal wall thi ckening with subtle adjacent fat stranding, which can be seen in the sett ing of proctitis. 2. Indeterminate 3.5 cm left ovarian ma ss. Please consider further evaluation with pelvic ultrasound. Preliminary Report Dictated by Resident: Lexie Major I, Lauren Cordova MD., have reviewed this study and agree with the above report. Performing Organization Address City/State/Zipcode Phone Number PACS/VR/DOSE documented in this encounter Visit Diagnoses Diagnosis Left lower quadrant abdominal pain documented in this encounter Insurance Payer Benefit Plan Subscriber ID Effective Dates Phone Address Type / Group BCBS OF [facility] [id number] 2019-Tiffanie [phone] [address] PPO/POS [place] t [id number] [place] [address] documented as of this encounter
--- OUTSIDE RECORDS SUMMARY | 2020-05-21 14:20 | XMS REPORT | Clinical Summary ---
:1975 Author Organization [facility] Address [address] [place] [address] Care Team Providers Name Role Phone Asked, Pcp Primary Care Provider Unavailable Allergies Active Allergy Reactions Severity Noted Date Comments Codeine GI Intolerance 07/30/2016 "vomit" Fluconazole Other (See Comments) 07/30/2016 Diarrhe a/vomiting "rash" Famotidine Headache 09/20/2019 Facial numbness Hydrocodone-Acetamino Other (See Comments) 07/30/2016 hallucination phen Medications Medication Sig Dispensed Refills Start End Date Status Date mirabegron (MYRBETRIQ) Take 1 tablet 0 Active 25 mg tablet extended by mouth release 24 hr daily. cholestyramine Take 1 packet 0 A ctive (QUESTRAN) 4 gram by mouth packet nightly. cholecalciferol, Take 1 tablet 0 Active vitamin D3, (VITAMIN by mouth D3) 5,000 unit tablet daily. dicyclomine (BENTYL) Take 10 mg by 0 Active 10 MG capsule mouth 2 (two) times a day. diclofenac (Voltaren) Apply 3 Tube 5 12/19/19 Active 1 % gel topically 4 0 21 (four) times a day. hydrOXYchloroQUINE Take 1 tablet 90 tablet 1 0 Active (PLAQUENIL) 200 mg (200 mg 0 21 tablet total) by mouth daily. hydroxychloroquine Take 200 mg 0 09/20/19 Discontinued (PLAQUENIL) 200 mg by mouth 20 ( Reorder) tablet daily. omeprazole (PriLOSEC) Take 20 mg by 0 03/09 08/28 Discontinued 20 MG capsule mouth daily. 20 hydroxychloroquine Take 1 tablet 90 tablet 1 0 Discontinued (PLAQUENIL) 200 mg (200 mg 0 20 ( Reorder) tablet total) by mouth daily. Active Problems Problem Noted Date Symptomatic anemia 07/08/2018 Encounters Date Type Specialty Care Team Description 04/25/2020 Travel 03/19/2020 [facility] system[facility] c lupus erythematosus with other organ involvement (HCC) (Primary Dx); MD Sachin Keratoconjuncti vitis sicca of both eyes not due to Sjogren's syndrome; High risk medic ation use; Long-term use o f Plaquenil 12/19/2019 Telemedicine [facility] Other systemi c lupus erythematosus with other organ involvement (HCC) (Primary Dx); MD Sachin High risk medic ation use; Keratoconjuncti vitis sicca of both eyes not due to Sjogren's syndrome; Left wrist pain 10/19/2019 Travel 10/18/2019 Orders Only Rheumatology [facility] Levinammed Left wrist pa in (Primary Dx); MD Sachin Other systemic lupus erythematosus with other organ involvement (HCC) 09/20/2019 Office Visit Rheumatology [facility] systemi c lupus erythematosus with other organ involvement (HCC) (Primary Dx); MD Sachin High risk medic ation use; Keratoconjuncti vitis sicca of both eyes not due to Sjogren's syndrome after 05/21/2019 Surgical History Surgery Date Site/Laterality Comments SECTION 2003 and 2012 D&C FIRST TRIMESTER / [place] 08/09/2007 - INCOMPLETE / MISSED / 08/08/2008 SEPTIC / INDUCED WISDOM TOOTH EXTRACTION CHOLECYSTECTOMY, 07/31/2016 Abdomen/N/A Procedure: LAPAROSCOPIC CHOLECYSTECTOMY, LAPAROSCOPIC; S urgeon: Donato canas MD; Location: [facility]; Service: [facility]; Laterality: N/A; HYSTERECTOMY Medical History Medical History Date Comments No family history of adverse response to anesthesia Does not exercise no chest pain or sob on stairs GERD (gastroesophageal reflux disease) IBS (irritable bowel syndrome) no meds Lupus (HCC) Gallstones Kidney stone kidney stones PONV (postoperative nausea and vomiting) Lupus (HCC) Family History Medical History Relation Name Comments Cancer Maternal Aunt Cancer Maternal Grandmother Diabetes Mother Cancer Paternal Aunt Diabetes Paternal Uncle Relation Name Status Comments Maternal Aunt Maternal Grandmother Mother Paternal Aunt Paternal Uncle Social History Tobacco Use Types Packs/Day Years Used Date Never Smoker Smokeless Tobacco: Never Used Alcohol Use Drinks/Week oz/Week Comments No Sex Assigned at Date Recorded Not on file COVID-19 Exposure Response Date Recorded In the last month, have you been in contact with No / Unsure 04/25/2020 3:45 PM CDT someone who was confirmed or suspected to have Coronavirus / COVID-19? Last Filed Vital Signs Vital Sign Reading Time Taken Comments Blood Pressure 121/76 09/20/2019 2:09 PM [employer] Pulse 79 09/20/2019 2:09 PM [employer] Temperature 36.8 C (98.3 F) 09/20/2019 2:09 PM [employer]ER Respiratory Rate - - Oxygen Saturation 100% 09/20/2019 2:09 PM RE[employer]ER Inhaled Oxygen Concentration - - Weight 71.7 kg (158 lb 2 oz) 09/20/2019 2:09 PM RE[employer] Height 152.4 cm (5') 09/20/2019 2:09 PM RE[employer]ER Body Mass Index 30.88 09/20/2019 2:09 PM RE[employer]ER Plan of Treatment Date Type Specialty Care Team Description 05/30/2020 Telemedicine Family Medicine [place] [address] [facility] X [phone] 09/19/2020 [place] [address] [facility] [address] [place], [place] [address] Health Maintenance Due Date Last Done Comments CERVICAL CANCER SCREENING 1997 INFLUENZA VACCINE 03/09/2020 05/28/2019 Procedures Procedure Name Priority Date/Time Associated Diagnosis Comme nts XR WRIST 3+ VW LEFT Routine 10/20/2019 8:20 Left wrist pain Results for this AM CDT Other systemic lupus procedu re are in erythematosus with the resul ts other organ section. involvement (HCC) MICROSCOPIC Routine 09/20/2019 2:53 Results for this EXAMINATION PM [employer] procedure are i n the results section. URINE Routine 09/20/2019 2:53 Other systemic lupus Res ults for this PROTEIN/CREATININE PM [employer]ER erythematosus with pro cedure are in RATIO, RANDOM other organ the results involvement (HCC) section. C4 COMPLEMENT Routine 09/20/2019 2:53 Other systemic lupus Re sults for this COMPONENT PM [employer]ER erythematosus with procedure are in other organ the results involvement (HCC) section. C3 COMPLEMENT Routine 09/20/2019 2:53 Other systemic lupus Re sults for this COMPONENT PM [employer]ER erythematosus with procedure are in other organ the results involvement (HCC) section. DOUBLE-STRANDED DNA Routine 09/20/2019 2:53 Other systemic janeth pus Results for this (DSDNA) ANTIBODIES, PM RE[employer]ER erythematosus with pr ocedure are in CRITHIDIA other organ the results involvement (HCC) section. URINALYSIS, AUTOMATED Routine 09/20/2019 2:53 Other systemic lupus Results for this WITH MICROSCOPY PM [employer]ER erythematosus with proced ure are in other organ the results involvement (HCC) section. C-REACTIVE PROTEIN Routine 09/20/2019 2:53 Other systemic lup us Results for this PM [employer]ER erythematosus with procedure are in other organ the results involvement (HCC) section. SEDIMENTATION RATE Routine 09/20/2019 2:53 Other systemic lup us Results for this PM [employer]ER erythematosus with procedure are in other organ the results involvement (HCC) section. COMPREHENSIVE Routine 09/20/2019 2:53 High risk medication Re sults for this METABOLIC PANEL PM [employer]ER use procedure ar e in the results section. CBC WITH PLATELET AND Routine 09/20/2019 2:53 High risk medic ation Results for this DIFFERENTIAL PM [employer]ER use procedure are i n the results section. after 05/21/2019 Results XR Wrist 3+ Vw Left (10/20/2019 8:20 AM CDT) Specimen Narrative Performed At EXAMINATION: XR WRIST 3 VW LEFT [facility] CLINICAL HISTORY: M25.532 Pain in left wrist, M32.19 Other organ or system involvement in systemic lupus kem thematosus, Arthritis wrist COMPARISON: None. IMPRESSION: 1. There is no fracture or acute osseo us pathology. 2. No radiopaque foreign body is ident ified. 3. A well-corticated calcification adjacent to the uln ar styloid most likely represents an old fracture. The joint spaces ar e relatively well-preserved with only minimal osteoarthritis at the radiocarpal and first CMC joints. [facility]-[id number] Procedure Note Hm Interface, Radiology Results Incoming - 10/20/2019 8:38 AM CDT EXAMINATION: XR WRIST 3 VW LEFT CLINICAL HISTORY: M25.532 Pain in left wrist, M32.19 Other organ or system involvement in systemic lupus erythematosus, Arthritis wrist COMPARISON: None. IMPRESSION: 1. There is no fracture or acute osseou s pathology. 2. No radiopaque foreign body is identi fied. 3. A well-corticated calcification adjac ent to the ulnar styloid most likely represents an old fracture. The joint spaces are relatively well-preserved with only minimal osteoarthritis at the radiocarpal and first CMC joints. [id number] Performing Organization Address [facility] Phon e Number [facility] [address] [place] [address] Microscopic Examination (09/20/2019 2:53 PM REFR[employer] IN[employer]ER) Pathologist Sig nature WBC, UA 0-5 0 - 5 /hpf [facility] RBC, UA 0-2 0 - 2 /hpf [facility] Epithelial cells (non renal) 0-10 0 - 10 /hpf [facility] Mucus, UA Present Not Estab. [facility] Bacteria, UA Few None seen/Few [facility] Specimen Narrative Performed At Performed at: [facility] [id number] 143 Health Safety Specialist: Luis Banda MD, Phone: [phone] Performing Organization Address [facility] Phon e Number [facility] DNA Ab screen (09/20/2019 2:53 PM RE[employer]S INST[employer]ER) Pathologist Sig nature DNA ds antibody 1 0 - 9 IU/mL [facility] Comment: Ne gative <5 Eq uivocal 5 - 9 Po sitive >9 Specimen Blood Narrative Performed At Performed at: [facility] [id number] 143 Health Safety Specialist: Luis Banda MD, Phone: [phone] Performing Organization Address [facility] Phon e Number [facility] Urine protein/creatinine ratio, random (09/20/2019 2:53 PM RE[employer]S INST[employer]ER) Pathologist Sig nature Creatinine, urine, random 128.4 Not Estab. mg/dL [facility] Protein, urine 7.7 Not Estab. mg/dL [facility] Protein/Creat Ratio 60 0 - 200 mg/g creat [facility] Specimen Urine Narrative Performed At Performed at: [facility] [id number] 143 Health Safety Specialist: Luis Banda MD, Phone: [phone] Performing Organization Address [facility] Phon e Number [facility] Urinalysis, automated with microscopy (09/20/2019 2:53 PM RE[employer]S IN[employer]ER) Specific gravity, 1.018 1.005 - 1.030 [facility] urine pH, urine 6.0 5.0 - 7.5 [facility] Color, UA Yellow Yellow [facility] Appearance Clear Clear [facility] WBC esterase, urine Negative Negative [facility] Protein, UA Negative Negative/Trace [facility] Glucose, urine Negative Negative [facility] Ketones, UA Negative Negative [facility] Occult blood, urine Negative Negative [facility] Bilirubin, UA Negative Negative [facility] Urobilinogen, UA 0.2 0.2 - 1.0 mg/dL [facility] Nitrite, UA Negative Negative [facility] Microscopic CommentComment: [facility] examination Microscopic follows if indicated. Microscopic See below:Comment: [facility] examination Microscopic was indicated and was performed. Specimen Urine Narrative Performed At Performed at: [facility] [address] [place] [id number] Health Safety Specialist: Luis Banda MD, Phone: [phone] Performing Organization Address [facility] Phon e Number [facility] Sedimentation rate (09/20/2019 2:53 PM REFR[employer]S INSTALLER) Pathologist Sig nature Sedimentation rate 3 0 - 32 mm/hr [facility] Specimen Blood Narrative Performed At Performed at: [facility] [address] [place] [id number] Health Safety Specialist: Luis Banda MD, Phone: [phone] Performing Organization Address [facility] Phon e Number [facility] CBC with platelet and differential (09/20/2019 2:53 PM REFR[employer]ER[employer] SYSTEMS INSTALLER) Pathologist Sig nature WBC 5.4 3.4 - 10.8 x10E3/uL [facility] RBC 3.85 3.77 - 5.28 [facility] x10E6/uL HGB 11.7 11.1 - 15.9 g/dL [facility] HCT 37.4 34.0 - 46.6 % [facility] MCV 97 79 - 97 fL [facility] MCH 30.4 26.6 - 33.0 pg [facility] MCHC 31.3 (L) 31.5 - 35.7 g/dL [facility] RDW 13.1 11.7 - 15.4 % [facility] Platelet count 327 150 - 450 x10E3/uL [facility] Neutrophils 51 Not Estab. % [facility] Lymphocytes 39 Not Estab. % [facility] Monocytes 7 Not Estab. % [facility] Eosinophils 3 Not Estab. % [facility] Basophils 0 Not Estab. % [facility] Neutrophils, absolute 2.7 1.4 - 7.0 x10E3/uL [facility] Lymphocytes, absolute 2.1 0.7 - 3.1 x10E3/uL [facility] Monocytes, absolute 0.4 0.1 - 0.9 x10E3/uL [facility] Eosinophils, absolute 0.1 0.0 - 0.4 x10E3/uL [facility] Basophils, absolute 0.0 0.0 - 0.2 x10E3/uL [facility] Immature granulocytes 0 Not Estab. % [facility] Immature grans (abs) 0.0 0.0 - 0.1 x10E3/uL [facility] Specimen Blood Narrative Performed At Performed at: [facility] [address] [place] [id number] Health Safety Specialist: Luis Banda MD, Phone: [phone] Performing Organization Address [facility] Phon e Number [facility] C3 complement component (09/20/2019 2:53 PM REFR[employer]S INSTALLER) Pathologist Sig nature C3 complement 140 82 - 167 mg/dL [facility] Specimen Blood Narrative Performed At Performed at: [facility] [address] [place] [id number] Health Safety Specialist: Luis Banda MD, Phone: [phone] Performing Organization Address City/[facility]/ZIP [facility] [place] [place] Phon e Number [facility] C4 complement component (09/20/2019 2:53 PM REFRIGERATION SYSTEMS INSTALLER) Pathologist Sig nature C4 complement 17 14 - 44 mg/dL [facility] Specimen Blood Narrative Performed At Performed at: [facility] [address] [place] [address] [id number] Health Safety Specialist: Luis Banda MD, Phone: [phone] Performing Organization Address [facility] Phon e Number [facility] C-reactive protein (09/20/2019 2:53 PM REFRIGER[employer] SYSTEMS INSTALLER) Pathologist Sig nature CRP 3 0 - 10 mg/L [facility] Specimen Blood Narrative Performed At Performed at: - [facility] [address] [place], [place] [address] 143 Health Safety Specialist: Luis Banda MD, Phone: [phone] Performing Organization Address [facility] Phon e Number [facility] Comprehensive metabolic panel (09/20/2019 2:53 PM REFRIGERATION SYSTEMS INSTALLER) Glucose 88 65 - 99 mg/dL [facility] BUN 8 6 - 24 mg/dL [facility] Creatinine 0.70 0.57 - 1.00 [facility] mg/dL EGFR Non-Afr. 106 >59 [facility] [place] mL/min/1.73 EGFR 123 >59 [facility] [place] mL/min/1.73 BUN/creatinine ratio 11 9 - 23 [facility] Sodium 142 134 - 144 [facility] mmol/L Potassium 4.3 3.5 - 5.2 [facility] mmol/L Chloride 103 96 - 106 [facility] mmol/L CO2 21 20 - 29 mmol/L [facility] Calcium 9.0 8.7 - 10.2 [facility] mg/dL Protein 7.4 6.0 - 8.5 g/dL [facility] Albumin, S 4.5Comment: 3.8 - 4.8 g/dL [facility] Please note reference interval change Globulin, total 2.9 1.5 - 4.5 g/dL [facility] Albumin/globulin 1.6 1.2 - 2.2 [facility] ratio Total bilirubin <0.2 0.0 - 1.2 [facility] mg/dL Alkaline phosphatase 81 39 - 117 IU/L [facility] AST 18 0 - 40 IU/L [facility] ALT 14 0 - 32 IU/L [facility] Specimen Blood Narrative Performed At Performed at: - [facility] [place] [facility] [address] [place], [place] [id number] 143 Health Safety Specialist: Luis Banda MD, Phone: [phone] Performing Organization Address [facility] Phon e Number [facility] after 05/21/[id number] Advance Directives For more information, please contact: [phone] Type Date Recorded 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
--- OUTSIDE RECORDS SUMMARY | 2020-05-21 14:20 | XMS REPORT | Summary of Care ---
:1975 [address] [facility] Address [address] [place] [id number] Care Team Providers Name Role Phone Pcp, Patient Does Not Have A Primary Care Provider +[id number] Reason for Referral MRI/CAT Scan (STAT) Status Reason Specialty Diagnoses / Referred By Referred To Procedures Contact Contact New Request Diagnostic Diagnoses Left lower quadrant abdominal pain Natalie Paiz, Radiology Procedures CT ABDOMEN PELVIS WO CONTRAST [address] [address] Reason for Visit Reason Comments Pain left side lower abdominal pa in Nausea Encounter Details Date Type Department Care Team Description 04/19/2020 Urgent Care [facility] Family Laura Paiz, [employer] [address] [address] Left lower quadrant abdominal pain (Prim alicia Dx); [facility] Provider, [facility] Nausea [address] [place] [address] Allergies Active Allergy Reactions Severity [...] powder 0 hydrOXYchloroQUINE 200 hydroxychloroquine 200 0 08/1 1/202 Active mg tablet mg tablet 0 metoclopramide [...] of this encounter Last Filed Vital Signs Vital Sign Reading Time Taken Comments Blood Pressure 112/74 04/19/2020 8:40 AM CDT Pulse 88 04/19/2020 8:40 AM CDT Temperature 36.9 C (98.4 F) 04/19/2020 8:40 AM CDT Respiratory Rate 16 04/19/2020 8:40 AM CDT Oxygen Saturation 100% 04/19/2020 8:40 AM CDT Inhaled Oxygen Concentration - - Weight 68 kg (150 lb) 04/19/2020 8:40 AM CDT Height 152.4 cm (5') 04/19/2020 8:40 AM CDT Body Mass Index 29.29 04/19/2020 8:40 AM CDT documented in this encounter Patient Instructions Patient InstructionsNatalie Paiz FNP - 04/19/2020 8:40 AM CDT Patient Education Abdominal Pain Abdominal pain is pain in the stomach or belly area. Everyone has this pain from time to time. In many cases it goes away on its own. But abdominal pain can sometimes be due to a serious problem, such as appendicitis. So its important to know when to get help. Causes of abdominal pain There are many possible causes of abdominal pain. Common causes in adults include: Constipation, diarrhea, or gas Stomach acid flowing back up into the esophagus (acid reflux or heartburn) Severe acid reflux, called GERD (gastroesophageal reflux disease) A sore in the lining of the stomach or small intestine (peptic ulcer) Inflammation of the gallbladder, liver,or pancreas Gallstones or kidney stones Appendicitis Intestinal blockage An internal organ pushing through a muscle or other tissue (hernia) Urinary tract infections In women, menstrual cramps, fibroids, ovarian cysts, pelvic inflammatory disease, or endometriosis Inflammation or infection of the intestines, including Crohn's disease and ulcerative colitis Irritable bowel syndrome Diagnosing the cause of abdominal pain Your healthcare provider will give you a physical exam help find the cause of your pain. If needed, you will have tests. Belly pain has many possible causes. So it can be hard to find the reason for your pain. Giving details about your pain can help. Tell your provider where and when you feel the pain, and what makes it better or worse. Also let your provider know if you have other symptoms such as: Fever Tiredness Upset stomach (nausea) Vomiting Changes in bathroom habits Blood in the stool or black, tarry stool Weight loss that you can't explain (involuntary weight loss?) Also report any family history of stomach or intestinal problems, or cancers. Tell your provider about all your alcohol use and drug use. Tell your provider about all medicines you use, including herbs, vitamins, and supplements. Treating abdominal pain Some causes of pain need emergency medical treatment right away. These include appendicitis or a bowel blockage. Other problems can be treated with rest, fluids, or medicines. Your healthcare provider can give you specific instructions for treatment or self-care based on what is causing your pain. If you have vomiting or diarrhea,sip water or other clear fluids. When you are ready to eat solid foods again, start with small amounts of dqvq-tv-ganssg, low- fat foods. These include apple sauce, toast, or crackers. When to get medical care Call 911or go to the hospital right away if you: Cant pass stool and are vomiting Are vomiting blood or have bloody diarrhea or black, tarry diarrhea Have chest, neck, or shoulder pain Feel like you might pass out Have pain in your shoulder blades with nausea Have sudden, severe belly pain Have new, severepain unlike any you have felt before Have a belly that is rigid, hard, and hurts to touch Call your healthcare provider if you have: Pain for more [id number] Bloating for more than 2days Diarrhea for more emos3rhln A fever of 100.4F (38C) or higher, or as directed by your healthcare provider Pain that gets worse Weight loss for no reason Continued lack of appetite Blood in your stool How to prevent abdominal pain Here are some tips to help prevent abdominal pain: Eat smaller amounts of food at each meal. Don't eat greasy, fried, or other high-fat foods. Don't eat foods that give you gas. Exercise regularly. Drink plenty of fluids. To help prevent GERD symptoms: Quit smoking. Reduce alcohol and foods that increase stomach acid. Don't use aspirin or bmtu-onw-qxpjkgi pain and fever medicines, if possible. This includes nonsteroidal anti-inflammatory drugs (NSAIDs). Lose excess weight. Finish eating at least 2 hours before you go to bed or lie down. Raise the head of your bed. [employer] last reviewed this educational content on 11/07/201819991375-5936 [employer]. [address] [place], [place] [id number]. All rights reserved. This information is not intended as a substitute for professional medical care. Always follow your healthcare professional's instructions. documented in this encounter Progress Notes Natalie Paiz FNP - 04/19/2020 8:40 AM CDT Cc: Chief Complaint Patient presents with Pain left side lower abdominal pain Nausea Mary Ibarra is a 44 year old female. Patient with hx of IBS and kidney stones and has had multiple abdominal surgereis here with left lower quadrant abdominal pain, that woke her from sleep. She had some nausea, but no other associated symptoms. Abdominal Pain Pain location: LLQ Pain quality: squeezing and stabbing Pain radiates to: L flank Pain severity: Moderate Onset quality: Gradual Timing: Constant Progression: Worsening Chronicity: New Context: previous surgery (hysterectomy 2019, fibroidectomy, x2 c-sections, cholescystectomy) Context: not alcohol use, not awakening from sleep, not diet changes, not eating, not laxative use, not medication withdrawal, not recent illness, not recent sexual activity, not recent travel, not retching, not sick contacts, not suspicious food intake and not trauma Relieved by: Nothing Worsened by: Nothing Ineffective treatments: None tried Associated symptoms: nausea Associated symptoms: no anorexia, no belching, no chest pain, no chills, no constipation, no cough, no diarrhea, no dysuria, no fatigue, no fever, no flatus, no hematemesis, no hematochezia, no hematuria, no melena, no shortness of breath, no sore throat, no vaginal bleeding, no vaginal discharge and no vomiting Nausea: Severity: Mild Onset quality: Gradual Timing: Intermittent Progression: Unchanged Risk factors: multiple surgeries Risk factors: no NSAID use Allergies Mary is allergic to codeine and vicodin [hydrocodone-acetaminophen]. Medications Outpatient Medications Prior to Visit Medication Sig Dispense Refill cholestyramine 4 gram powder hydrOXYchloroQUINE 200 mg tablet hydroxychloroquine 200 mg tablet mirabegron (MYRBETRIQ) 25 mg tablet Myrbetriq 25 mg tablet,extended release Take 1 tablet every day by oral route. No facility-administered medications prior to visit. Histories No past medical history on file. No past surgical history on file. Social History Socioeconomic History Marital status: Spouse name: Not on file Number of children: Not on file Years of education: Not on file Highest education level: Not on file Occupational History Not on file Social Needs Financial resource strain: Not on file Food insecurity Worry: Not on file Inability: Not on file Transportation needs Medical: Not on file Non-medical: Not on file Tobacco Use Smoking status: Never Smoker Smokeless tobacco: Never Used Substance and Sexual Activity Alcohol use: Not on file Drug use: Not on file Sexual activity: Not on file Lifestyle Physical activity Days per week: Not on file Minutes per session: Not on file Stress: Not on file Relationships Social connections Talks on phone: Not on file Gets together: Not on file Attends faith service: Not on file Active member of club or organization: Not on file Attends meetings of clubs or organizations: Not on file Relationship status: Not on file Intimate partner violence Fear of current or ex partner: Not on file Emotionally abused: Not on file Physically abused: Not on file Forced sexual activity: Not on file Other Topics Concern Not on file Social History Narrative Not on file No family history on file. Review of Systems Constitutional: Negative. Negative for chills, fatigue and fever. HENT: Negative for sore throat. Respiratory: Negative. Negative for apnea, cough, choking, chest tightness, shortness of breath andwheezing. Cardiovascular: Negative. Negative for chest pain, palpitations and leg swelling. Gastrointestinal: Positive for abdominal pain and nausea. Negative for anorexia, constipation, diarrhea, flatus, hematemesis, hematochezia, melena and vomiting. Genitourinary: Negative for dysuria, hematuria, vaginal bleeding and vaginal discharge. Skin: Negative. Neurological: Negative. Endocrine: Endocrine negative Vital Signs BP 112/74 | Pulse 88 | Temp 36.9 C (98.4 F) (Oral) | Resp 16 | Ht 5' (1.524 m) | Wt 150 lb (68 kg) | SpO2 100% | BMI 29.29 kg/m Physical Exam Vitals signs and nursing note reviewed. Constitutional: Appearance: She is well-developed. HENT: Head: Normocephalic. Right Ear: External ear normal. Left Ear: External ear normal. Nose: Nose normal. Neck: Musculoskeletal: Normal range of motion and neck supple. Cardiovascular: Rate and Rhythm: Normal rate and regular rhythm. Heart sounds: Normal heart sounds. No murmur. No friction rub. No gallop. Pulmonary: Effort: Pulmonary effort is normal. No respiratory distress. Breath sounds: Normal breath sounds. No wheezing or rales. Chest: Chest wall: No tenderness. Abdominal: General: Bowel sounds are normal. There is no distension. Palpations: Abdomen is soft. Tenderness: There is abdominal tenderness in the suprapubic area and left lower quadrant. Skin: General: Skin is warm and dry. Capillary Refill: Capillary refill takes less than 2 seconds. Coloration: Skin is not pale. Findings: No erythema or rash. Neurological: Mental Status: She is alert and oriented to person, place, and time. Psychiatric: Mood and Affect: Mood normal. Assessment/Plan Left lower quadrant abdominal pain (primary encounter diagnosis) Comment: for further eval to determine etiology the following are ordered. Plan: CBC WITH DIFF, COMP. METABOLIC PANEL (21675), URINALYSIS, URINE CULTURE, CT ABDOMEN PELVIS WO CONTRAST Nausea Comment: for symptoms relief while waiting on study result, the following is ordered. Plan: metoclopramide HCl (REGLAN) 10 mg tablet Clinical references for home care instructions reviewed and copy given. RTC if no improvement, and ER if worse. further interventions to follow depending on study result. Plan of care, desired health behaviors, goals, and medication discussed with patient. Education resources provided and reviewed with AVS. Patient/guardian/family verbalized understanding & agrees to plan of care. This visit did not involve counseling and coordination that comprised more than 50% of the visit time. If applicable, the [facility] database was accessed to review any controlled substance prescription claims data. The [employer] prescription claims data in [employer] was reviewed to assess patient compliance with the medication treatment plan. documented in this encounter Plan of Treatment Name Type Priority Associated Diagnoses Order S chedule CBC WITH DIFF LAB Routine Left lower quadrant Ordered : 04/19/2020 abdominal pain COMP. METABOLIC PANEL LAB Routine Left lower quadrant Ordered: 04/19/2020 (77267) abdominal pain URINALYSIS LAB Routine Left lower quadrant Ordered: 04/19/2020 abdominal pain URINE CULTURE LAB Routine Left lower quadrant Ordered : 04/19/[address] ABDOMEN PELVIS WO IMAGING STAT Left lower quadrant Expected: 04/19/2020, CONTRAST abdominal pain Expires: 04/09 Health Maintenance Due Date Last Done Comments PNEUMOCOCCAL 0-64 YEARS COMBINED SERIES (1 of 3 - 1982 PCV13) Depression Screening 1988 DTaP,Tdap,and Td Vaccines (1 - Tdap) 1995 PAP SMEAR 1997 Breast Cancer Screening (MAMMOGRAM) 2016 INFLUENZA VACCINE (#1) 2020 documented as of this encounter Results Not on filedocumented in this encounter Visit Diagnoses Diagnosis Left lower quadrant abdominal pain - Alyssia catalina Nausea Nausea alone documented in this encounter Insurance Payer Benefit Plan Subscriber ID Effective Dates Phone Address Type / Group [facility] [id number] 2019-Tiffanie [phone] [address] PPO/POS [place] [id number] [place] [address] CIGNA CIGNA GENERIC [id number] 2019-Tiffanie HMO/PPO/P t OS documented as of this encounter"
--- OUTSIDE RECORDS SUMMARY | 2020-05-21 14:20 | XMS REPORT | Continuity of Care Document ---
:1975 Author Organization [facility] t Address [address] [place] [address] Care Team Providers Name Role Phone Asked, Pcp Primary Care Physician Unavailable Froy Marie Attending Clinician Unavailable Froy Marie Attending Clinician Unavailable Lab, Fam Pob I Attending Clinician Unavailable Provider, Urgent Care Attending Clinician Unavailable Chencho MUSTAFA Attending Clinician Sachin Levin MD Attending Clinician Froy Marie Admitting Clinician Unavailable Payers Payer Name Policy Type Policy Effective Date Expiration Date [facility] Number BCBSBCBS [facility] [id number] 2019 [place] PPO/FEDERAL 00:00:00 [employer] EMPL [id number] 2019-Presen tPPO Problems Condition Condition Condition Status Onset Resolution Last Treating Co mments Source Name Details Category Date Date Treatment Clinician Date Symptomati Symptomati Disease Active 2017-08 [place] anemia c anemia 30 Method i 00:00: st 00 Allergies, Adverse Reactions, Alerts Allergy Allergy Status Severity Reaction(s) Onset Inactive Treating Comm ents Source Name Type Date Date Clinician Famotidi Propensi Active Headache Facial [place] ty to 2-12 numbness Methodi adverse 00:00: st reaction 00 s to drug codeine DA Active [facility] 3[facility] [place] [facility] hydrocod DA Active [place] 2018- [facility] one 3- [place] 00:[facility]: d 00 [facility] codeine DA Active U 2018- [facility] 3[facility] [place] hydrocod DA Active U 2018- [facility] one 3-25 [facility] [place] acetamin DA Active U [facility] ophen 3-25 [facility] [place] Codeine Propensi Active GI 2015-08 "vomit" [place] ty to Intolerance 2-22 Metho di adverse 00:00: st reaction 00 s to drug Fluconaz Propensi Active Other (See 2015-08 Diarrhea/ [facility] ole ty to Comments) 2-22 vomiting Metho di adverse 00:00: "rash" st reaction 00 s to drug Hydrocod Propensi Active Other (See 2015-08 hallucina [facility] one-Acet ty to Comments) 2-22 tion Metho di aminophe adverse 00:00: st n reaction 00 s to drug fluconaz DA Active U 2003- [facility] ole 1-20 [facility] [place] DIFLUCAN DA Active U 2003- [facility] 1-19 [facility] [place] No Known DA Active U 2003- [facility] Contrast 1-19 [facility] Allergie 00:00: [facility] [place] No Known DA Active U 2003- [facility] Food 1-19 [facility] Allergie 00:00: [facility] [place] No Known DA Active U 2003- [facility] Other 1-19 [facility] All[facility]ie 00:[facility]: [facility] [place] Family History Family Member Diagnosis Comments Start Date Stop Date Source Maternal aunt Cancer [facility] Maternal grandmother Cancer [facility] ton Pentecostalism Natural mother Diabetes [facility] Paternal aunt Cancer [facility] Paternal uncle Diabetes [facility] Social History Social Habit Start Date Stop Date Quantity Comments Source Sex Assigned At [facility] ethodist Exposure to Not sure [facility] dist SARS-CoV-2 (event) Tobacco use and 2019-09-20 2019-09-20 Never used [facility] ethodist exposure 00:00:00 00:00:00 Alcohol intake 2019-09-20 2019-09-20 Current [facility] 00:00:00 00:00:00 non-drinker of alcohol (finding) Smoking Status Start Date Stop Date Source Never smoker [facility] Methodis t Medications Ordered Filled Start Stop Current Ordering Indication Dosage Frequency Signature Comments Components Source Medication Medication Date Date Medication? Clinician (SIG) Name Name omeprazole 2019- 2020- No 20mg QD Take 20 mg [facility] (PriLOSEC) 03-19 by mouth Meth teresita 20 MG 16:23: 00:[address] capsule 56 :00 hydrOXYchlo 2020-0 2020- Yes 200mg QD Take 1 [place] roQUINE 03-19 tablet Methodi (PLAQUENIL) 00:00: 23:59 ([address] 200 mg 00 :00 total) by tablet mouth daily. diclofenac 2019-0 2020- No Q.25D Apply [place] (Voltaren) 12-18 05-12 topically Met hodi 1 % gel 00:00: 23:59 4 (four) st 00 :00 times a day. hydroxychlo 2020-0 2020- No 200mg QD Take 200 [facility] roquine 09-20 02-12 mg by [facility] (PLAQUENIL) 14:46: 00:[address] 200 mg 25 :00 daily. tablet mirabegron 2020-0 Yes 1{tbl} QD Take 1 Lino ston (MYRBETRIQ) 2-12 tablet by Met hodi 25 mg 14:11: mouth st tablet 00 daily. extended release 24 hr cholestyram 2020-0 Yes 1{packe QD Take 1 [place] ine 2-12 t} packet by [facility] (QUESTRAN) 14:11: mouth st 4 gram 00 nightly. packet cholecalcif 2020-0 Yes 1{tbl} QD Take 1 [place] freda, 2-12 tablet by [facility] vitamin D3, 14:11: mouth st (VITAMIN 00 daily. D3) 5,000 unit tablet dicyclomine 2020-0 Yes 10mg Q.5D Take 10 mg [facility] (BENTYL) 10 2-12 by mouth 2 Me thodi MG capsule 14:11: (two) st 00 times a day. hydroxychlo 2020-0 2020- No 200mg QD Take 1 [place] roquine 09-20-11 tablet [facility] (PLAQUENIL) 00:00: 00:00 ([address] 200 mg 00 :00 total) by tablet mouth daily. Vital Signs Vital Name Observation Time Observation Value Comments Source Systolic blood 2019-09-20 14:09:00 121 mm[Hg] Carlie Simms pressure Diastolic blood 2019-09-20 14:09:00 76 mm[Hg] Ramez Simms pressure Heart rate 2019-09-20 14:09:00 79 /min Agustin Simms Body temperature 2019-09-20 14:09:00 36.83 Renata Jaya Simms Body height 2019-09-20 14:09:00 152.4 cm Agustin Simms Body weight 2019-09-20 14:09:00 71.725 kg Agustin Simms BMI 2019-09-20 14:09:00 30.88 kg/m2 Agustin Simms Oxygen saturation in 2019-09-20 14:09:00 100 /min Agustin Simms Arterial blood by Pulse oximetry Procedures Procedure Date / Time Performed Performing Clinician Sourc e XR WRIST 3+ VW LEFT 2019-10-20 08:20:00 Tran Levin CBC WITH PLATELET AND 2019-09-20 14:53:00 Tran Levin DIFFERENTIAL COMPREHENSIVE METABOLIC 2019-09-20 14:53:00 Tran Levin PANEL SEDIMENTATION RATE 2019-09-20 14:53:00 Tran Levin C-REACTIVE PROTEIN 2019-09-20 14:53:00 Tran Levin URINALYSIS, AUTOMATED 2019-09-20 14:53:00 Tran Levin WITH MICROSCOPY DOUBLE-STRANDED DNA 2019-09-20 14:53:00 Tran Levin (DSDNA) ANTIBODIES, CRITHIDIA C4 COMPLEMENT COMPONENT 2019-09-20 14:53:00 Tran Levin URINE PROTEIN/CREATININE 2019-09-20 14:53:00 Tran Levin RATIO, RANDOM MICROSCOPIC EXAMINATION 2019-09-20 14:53:00 Tran Levin Plan of Care Planned Activity Planned Date Details Comments Source Future Scheduled 2020-03-09 INFLUENZA VACCINE [place] [facility] Test 00:00:00 [code = INFLUENZA VACCINE] Future Scheduled 1997 Screening for [facility] Test 00:00:00 malignant neoplasm of cervix (procedure) [code = 258769850] Encounters Start End Encounter Admission Attending Care Care Encounter Source Date/Time Date/Time Type Type Clinicians Facility Department ID 2020-05-03 Inpatient Christo Marie [facility] [id number] 12:09:00 CynthiaChristo perea [facility] 2020-05-08 2020-05-08 Laboratory Lab, Adc [facility] [id number] 09:56:58 10:16:58 Only Fam Pob I Health [id number] [place] [id number] Professio [phone] nal 0[address] One 2020-04-24 2020-04-24 Telephone Provider, [facility] [id number] 00:00:00 00:00:00 [facility] [id number] Care [place] [id number] Professio [phone] nal 044 [address] One 2020-04-19 2020-04-19 Hospital [facility] [id number] 12:55:25 23:59:00 Encounter Natalie Giselle [id number] [place] [id number] [place] [id number] 2020-04-19 2020-04-19 Urgent Provider, [facility] [id number] 08:33:17 16:46:45 Care [facility] [id number] Care [place] [id number] Professio [phone] nal 044 Office [address] One 2020-03-19 2020-03-19 Outpatient COUNTS INCLUDE 234 BEDS AT THE [facility] [id number] [place] 00:00:00 00:00:[address] 2019-12-19 2019-12-19 Outpatient COUNTS INCLUDE 234 BEDS AT THE [facility] [id number] [place] 00:00:00 00:00:[address] 2019-10-20 2019-10-20 Outpatient COUNTS INCLUDE 234 BEDS AT THE [facility] [id number] [place] 00:00:00 00:00:00 MOH[address] 2019-10-19 2019-10-19 Outpatient EDSON, [facility] [id number] [place] 00:00:00 00:00:00 [address] Results Test Description Test Time Test Comments Results Result Comments Source Urinalysis, automated with microscopy 2019-09-22 06:09:00 Test Item Value Reference Range Interpretation Comme nts Specific gravity, urine 1.018 1.005-1.030 (test code = 2965-2) pH, urine (test code = 6.0 5.0-7.5 5803-2) Color, UA (test code = Yellow Yellow 5778-6) Appearance (test code = Clear Clear 5767-9) WBC esterase, urine Negative Negative (test code = 5799-2) Protein, UA (test code Negative Negative/Trace = 65414-9) Glucose, urine (test Negative Negative code = 2349-9) Ketones, UA (test code Negative Negative = 2514-8) Occult blood, urine Negative Negative (test code = 5794-3) Bilirubin, UA (test Negative Negative code = 5770-3) Urobilinogen, UA (test 0.2 mg/dL 0.2-1 code = 16575-3) Nitrite, UA (test code Negative Negative = 5802-4) Microscopic examination See below: Micr oscopic was (test code = 71174-8) indica logan and was performed. WINNIE (test code = WINNIE) Performed at: [facility] [id number] Director: Luis Banda MD, Phone: [phone] [facility] MethodistUrine protein/creatinine ratio, [id number] 06:09:00 Test Item Value Reference Range Interpretation Comments Creatinine, urine, 128.4 mg/dL Not Estab. random (test code = 2161-8) Protein, urine (test 7.7 mg/dL Not Estab. code = 2888-6) Protein/Creat Ratio 60 0- 200 mg/g creat (test code = 2890-2) WINNIE (test code = Performed at: WINNIE) [facility] [id number] Director: Luis Banda MD, Phone: [phone] [facility] MethodistMicroscopic [id number] 06:09:00 Test Item Value Reference Range Interpretation Comments WBC, UA (test code = 0-5 0- 5 /hpf 5821-4) RBC, UA (test code = 0-2 0- 2 /hpf 90996-3) Epithelial cells (non 0-10 0- 10 /hpf renal) (test code = 5787-7) Mucus, UA (test code = Present Not Estab. 8247-9) Bacteria, UA (test code Few None seen/Few = 5769-5) WINNIE (test code = WINNIE) Performed at: [address] [id number] Director: Luis Banda MD, Phone: [phone] [facility] MethodistDNA Ab [id number] 12:09:00 Test Item Value Reference Range Interpretation Comments DNA ds antibody 1 0- 9 IU/mL (test code = 5130-0) Negative < 5 Equivocal 5 - 9 Positive > 9 WINNIE (test code = Performed at: WINNIE) [facility] [id number] Director: Luis Banda MD, Phone: [phone] [facility] MethodistC-reactive [id number] 10:10:00 Test Item Value Reference Range Interpretation Comments CRP (test code = 3 mg/L 0-10 1988-5) WINNIE (test code = Performed at: WINNIE) [facility] [id number] Director: Luis Banda MD, Phone: [phone] [facility] MethodistC4 complement [id number] 10:10:00 Test Item Value Reference Range Interpretation Comments C4 complement (test 17 mg/dL 14-44 code = 4498-2) WINNIE (test code = WINNIE) Performed at: [address] [id number] Director: Luis Banda MD, Phone: [phone] [facility] MethodistC3 complement [id number] 10:10:00 Test Item Value Reference Range Interpretation Comments C3 complement (test 140 mg/dL 82-167 code = 4485-9) WINNIE (test code = WINNIE) Performed at: 01 - [facility] [address] [id number] Director: Luis Banda MD, Phone: [phone] [facility] MethodistComprehensive metabolic [id number] 06:09:00 Test Item Value Reference Range Interpretation Comments Glucose (test code 88 mg/dL 65-99 = 2345-7) BUN (test code = 8 mg/dL 6-24 3094-0) Creatinine (test 0.70 mg/dL 0.57-1 code = 2160-0) EGFR Non-Afr. 106 mL/min/1.73 >59 Slovenian (test code = 2775) EGFR 123 mL/min/1.73 >59 [place]ian (test code = 2774) BUN/creatinine 11 9-23 ratio (test code = 3097-3) Sodium (test code = 142 mmol/L 142-545 4267-2) Potassium (test 4.3 mmol/L 3.5-5.2 code = 2823-3) Chloride (test code 103 mmol/L 96-106 = 2075-0) CO2 (test code = 21 mmol/L 20-29 8-9) Calcium (test code 9.0 mg/dL 8.7-10.2 = 97973-4) Protein (test code 7.4 g/dL 6-8.5 = 2885-2) Albumin, S (test 4.5 g/dL 3.8-4.8 code = 1751-7) Please note reference interval change Globulin, total 2.9 g/dL 1.5-4.5 (test code = 50975-8) Albumin/globulin 1.6 1.2-2.2 ratio (test code = 1759-0) Total bilirubin <0.2 0-1.2 (test code = 1975-2) Alkaline 81 39- 117 IU/L phosphatase (test code = 6768-6) AST (test code = 18 0- 40 IU/L 1920-8) ALT (test code = 14 0- 32 IU/L 1742-6) WINNIE (test code = Performed at: 01 WINNIE) - [facility] [address] [id number] Director: Luis Banda MD, Phone: [phone] [facility] with platelet and [id number] 06:09:00 Test Item Value Reference Range Interpretation Comments WBC (test code = 6690-2) 5.4 3.4- 10.8 x10E3/uL RBC (test code = 789-8) 3.85 3.77- 5.28 x10E6/uL HGB (test code = 718-7) 11.7 g/dL 11.1-15.9 HCT (test code = 4544-3) 37.4 % 34-46.6 MCV (test code = 787-2) 97 fL 79-97 MCH (test code = 785-6) 30.4 pg 26.6-33 MCHC (test code = 786-4) 31.3 g/dL 31.5-35.7 L RDW (test code = 788-0) 13.1 % 11.7-15.4 Platelet count (test 327 150- 450 x10E3/uL code = 777-3) Neutrophils (test code = 51 % Not Estab. 770-8) Lymphocytes (test code = 39 % Not Estab. 736-9) Monocytes (test code = 7 % Not Estab. 5905-5) Eosinophils (test code = 3 % Not Estab. 713-8) Basophils (test code = 0 % Not Estab. 706-2) Neutrophils, absolute 2.7 1.4- 7.0 x10E3/uL (test code = 751-8) Lymphocytes, absolute 2.1 0.7- 3.1 x10E3/uL (test code = 731-0) Monocytes, absolute 0.4 0.1- 0.9 x10E3/uL (test code = 742-7) Eosinophils, absolute 0.1 0.0- 0.4 x10E3/uL (test code = 711-2) Basophils, absolute 0.0 0.0- 0.2 x10E3/uL (test code = 704-7) Immature granulocytes 0 % Not Estab. (test code = 83096-1) Immature grans (abs) 0.0 0.0- 0.1 x10E3/uL (test code = 63483-6) WINNIE (test code = WINNIE) Performed at: [address] [place] [address] [id number] Director: Luis Banda MD, Phone: [phone] Lab Interpretation (test Abnormal code = 19462-8) [facility] MethodistSedimentation [id number] 06:09:00 Test Item Value Reference Range Interpretation Comments Sedimentation rate (test 3 0- 32 mm/hr code = 4537-7) WINNIE (test code = WINNIE) Performed at: [address] [id number] Director: Luis Banda MD, Phone: [phone] [facility] MethodistUrease Helicobacter [id number] 15:12:39 Test Item Value Reference Range Interpretation Comments H. pylori (1 Hour) (test code = H. Negative pylori (1 Hour)) H. pylori (4 Hours) (test code = H. Negative pylori (4 Hours)) Vial Lot # (test code = Vial Lot #) [id number] N Vial Exp. Date (test code = Vial 12/14/2019 N Exp. Date) UTERUS,OTHER THAN PROLAPSE/[id number] 20:10:00 RUN DATE: 11/08/18 [facility] PAGE 1 RUN TIME: 1210 Specimen Inquiry RUN USER: INTERFACE PATIENT: ELGIN CARABALLO [facility] #: [id number] AGE/SX: 43/F ROOM: [facility] RE11/04/18REG DR: Berhane Garcia MD : 76 BED: A DIS: 11/05/18 STATUS: DIS Ryan TLOC: SPEC #: [id number] RECD: 11/04/18-1425 STATUS: LEILA RENicolas #: [id number] YANIQUE: 11/04/18- SUBM DR: Berhane Garcia MD ENTERED: 11/04/18 SP TYPE: UTERUSOTH OTHR DR: ORDERED: LEVEL V SURGICA CODES: [id number] - UTERUS, NOS PROCEDURES: LEVEL V SURGICA (Incomplete) TISSUES: UTERUS, NOS - UTERUS, CERVIX AND BILATERAL FALLOPIAN TUBES CLINICAL HISTORY 43 year old, menorrhagia (wpd) FINAL DIAGNOSIS Uterus, hysterectomy: - cervix - Nabothian cysts - endometrium - changes suggesting glandular-stromal dissociation - myometrium - leiomyoma - serosa - a few fibrous adhesions - fallopian tubes, bilateral resection - no pathologic diagnosis Tissue code 1 CPT code(s): 45026 cds/wpd 11/07/18 GROSS DESCRIPTION ANATOMIC SOURCE OF TISSUE (per Requisition): Uterus and cervix, bilateral tubes The specimen is received in a formalin-filled container, labeled with the patient's name and designated "uterus and cervix, bilateral tubes". The specimen consists of a 205 gm, 11.5 x 7.5x 6.0 cm intact uterus with an attached cervix and detached fimbriated fallopian tubes (4.0 and 6.0 cm in length). The uterine serosa is olmedo-pink, hyperemic and slightly nodular with a few adhesions. The 3.5 cm ectocervix displays a central 1 cm slit-like os. The endometrium is olmedo-red and hemorrhagic with a thickness measuring up to 0.1 cm. The myometrium is slightly trabeculated with a wall thickness measuring up to 5.0 cm. There is a 5.5 cm well-circumscribed nodule. The cut surfaces are olmedo-pink and whorled with focal areas of hemorrhage. There is no necrosis. CONTINUED ON NEXT PAGE RUN DATE: 11/08/18 [facility] PAGE 2 RUN TIME: 1210 Specimen Inquiry RUN USER: INTERFACE --SPEC #: [id number] PATIENT: ELGIN CARABALLO #[id number] (Continued) GROSS DESCRIPTION (Continued) The fallopian tubes are pink-purple and hyperemic. The lumens are pinpoint. Section code: A - cervix, B - anterior endomyometrium with serosal adhesions, C - posterior endomyometrium, D - intramural nodule, E - additional intramural nodule and printing supplies sales representative sections of short segment of fallopian tube, F - additional intramural nodule and printing supplies sales representative sections of long segment of fallopian tube. jm/wpd 11/04/18 @ 1626 MICROSCOPIC DESCRIPTION The endometrium isthin and has somewhat pseudodecidualized stroma consistent with glandular-stromal dissociation. A leiomyoma without atypia is noted in the myometrium. cds/wpd 11/07/18 Signed Jorgito Palomo 11/07/182009 END OF REPORT HGB HCT 2018-11-05 05:05:00 Test Item Value Reference Range Interpretation Comments HEMOGLOBIN (test code = HGB) 10.5 g/dL 10.7-13.9 L HEMATOCRIT (test code = HCT) 33.6 % 32.1-42.1 N AG HEPATITIS B [id number] 19:18:00 Test Item Value Reference Range Interpretation Comments AG HEPATITIS B SURFACE (test code NONREACTIVE NONREACTIVE = HBSAG) IS CONSENT FORM SIGNED FOR HIV TESTING? YAB HEPATITIS C [id number] 19:18:00 Test Item Value Reference Range Interpretation Comments AB HEPATITIS C (test code = NONREACTIVE NONREACTIVE HCVAB) SIGNAL TO CUTOFF (test code = 0.09 <0.80 N CUTOFF) IS CONSENT FORM SIGNED FOR HIV TESTING? YAB HIV 1 19:18:00 Test Item Value Reference Range Interpretation Comments AB HIV 1 2 (test NONREACTIVE NONREACTIVE Done by Melo Mckeon code = [id number]) 4th Gen HIV Ag/Ab Combo Screen IS CONSENT FORM SIGNED FOR HIV TESTING? YAG HEPATITIS B [id number] 18:51:00 Test Item Value Reference Range Interpretation Comments AG HEPATITIS B SURFACE (test code NONREACTIVE NONREACTIVE = HBSAG) IS CONSENT FORM SIGNED FOR HIV TESTING? YAB HEPATITIS C [id number] 18:51:00 Test Item Value Reference Range Interpretation Comments AB HEPATITIS C (test code = HCVAB) NONREACTIVE SIGNAL TO CUTOFF (test code = CUTOFF) <0.80 IS CONSENT FORM SIGNED FOR HIV TESTING? YAB HIV 1 18:51:00 Test Item Value Reference Range Interpretation Comments AB HIV 1 2 (test code = [id number]) NONREACTIVE IS CONSENT FORM SIGNED FOR HIV TESTING? YPROTHROMBIN [id number] 17:42:00 Test Item Value Reference Range Interpretation Comments PROTHROMBIN TIME PATIENT (test code 11.4 secs 10.4-12.4 N = PTP) THROMBOPLASTIN TIME [id number] 17:42:00 Test Item Value Reference Range Interpretation Comments THROMBOPLASTIN TIME PARTIAL (test 35.3 secs 22-38 N code = PTT) CHEMISTRY 7 [id number] 17:41:00 Test Item Value Reference Range Interpretation Comments SODIUM (test code = NA) 139 mEq/L 135-145 N POTASSIUM (test code = K) 4.1 mEq/L 3.5-5.0 N CHLORIDE (test code = CL) 104 mEq/L 100-115 N CARBON DIOXIDE (test code = CO2) 28 mEq/L 22-31 N ANION GAP (test code = GAP) 11.40 10-20 N GLUCOSE (test code = GLU) 90 mg/dL 65-110 N BLOOD UREA NITROGEN (test code = 11 mg/dL 7-18 N BUN) GLOMERULAR FILTRATION RATE (test 79 ml/min >60 N code = GFR) CREATININE (test code = CREAT) 0.8 mg/dL 0.5-1.0 N CALCIUM (test code = CA) 8.6 mg/dL 8.4-10.2 N HCG SERUM [id number] 17:41:00 Test Item Value Reference Range Interpretation Comments HCG SERUM QUAL (test code = HCGQL) CHEMISTRY 7 [id number] 17:41:00 Test Item Value Reference Range Interpretation Comments SODIUM (test code = NA) 139 mEq/L 135-145 N POTASSIUM (test code = K) 4.1 mEq/L 3.5-5.0 N CHLORIDE (test code = CL) 104 mEq/L 100-115 N CARBON DIOXIDE (test code = CO2) 28 mEq/L 22-31 N ANION GAP (test code = GAP) 11.40 10-20 N GLUCOSE (test code = GLU) 90 mg/dL 65-110 N BLOOD UREA NITROGEN (test code = 11 mg/dL 7-18 N BUN) GLOMERULAR FILTRATION RATE (test 79 ml/min >60 N code = GFR) CREATININE (test code = CREAT) 0.8 mg/dL 0.5-1.0 N CALCIUM (test code = CA) 8.6 mg/dL 8.4-10.2 N HCG SERUM [id number] 17:41:00 Test Item Value Reference Range Interpretation Comments HCG SERUM QUAL (test code = HCGQL) NEGATIVE URINALYSIS [id number] 17:22:00 Test Item Value Reference Range Interpretation Comments UA COLOR (test code = COLU) STRAW YELLOW UA APPEARANCE (test code = CLEAR CLEAR APPU) UA GLUCOSE DIPSTICK (test code NEGATIVE NEG = DGLUU) UA BILIRUBIN DIPSTICK (test NEGATIVE NEG code = BILU) UA KETONE DIPSTICK (test code NEGATIVE NEG = KETU) UA SPECIFIC GRAVITY (test code 1.005 1.001-1.035 N = SGU) UA BLOOD DIPSTICK (test code = NEG NEG CONCEPCION) UA PH DIPSTICK (test code = 6.0 5-9 SEAN) UA PROTEIN DIPSTICK (test code NEGATIVE NEG = PROU) UA UROBILINIOGEN DIPSTICK NEGATIVE mg/dL NEG (test code = URO) UA NITRITE DIPSTICK (test code NEG NEG = ESTHER) UA LEUKOCYTE ESTERASE DIPSTICK NEG NEG (test code = LEUU) UA WBC (test code = WBCU) 0-2 #/hpf NONE SEEN UA RBC (test code = RBCU) 0-2 #/hpf NONE SEEN UA EPITHELIAL CELLS (test code RARE #/HPF RARE-FEW = EPIU) UA BACTERIA (test code = BACU) RARE /HPF RARE-FEW UA MUCUS (test code = MUCU) RARE NONE SEEN URINE SAMPLE: CLEAN CATCHCBC W/AUTO [id number] 17:16:00 Test Item Value Reference Range Interpretation Comments WHITE BLOOD CELL (test code = WBC) 5.4 K/mm3 6.6-12.1 L RED BLOOD CELL (test code = RBC) 3.78 M/mm3 3.45-5.01 N HEMOGLOBIN (test code = HGB) 11.1 g/dL 10.7-13.9 N HEMATOCRIT (test code = HCT) 36.2 % 32.1-42.1 N MEAN CELL VOLUME (test code = MCV) 96 fL 84.1-94.8 H MEAN CELL HGB (test code = MCH) 29.4 pg 27-35 N MEAN CELL HGB CONCETRATION (test 30.7 gm/dL 32.2-34.1 L code = MCHC) RED CELL DISTRIBUTION WIDTH (test 16.2 % 12.4-16.5 N code = RDW) PLATELET COUNT (test code = PLT) 317 K/mm3 133-385 N IMMATURE PLATELET FRACTION (test 0.0 % 0.0-10.8 N code = IPF) MEAN PLATELET VOLUME (test code = 10.9 fl 9.1-12.7 N MPV) NEUTROPHIL % (test code = NT%) 47.4 % 56.5-79.4 L LYMPHOCYTE % (test code = LY%) 43.0 % 14.3-34.3 H MONOCYTE % (test code = MO%) 7.4 % 5.1-10.4 N EOSINOPHIL % (test code = EO%) 1.3 % 0.1-3.0 N BASOPHIL % (test code = BA%) 0.7 % 0.1-1.0 N NEUTROPHIL # (test code = NT#) 2.6 K/mm3 LYMPHOCYTE # (test code = LY#) 2.3 K/mm3 MONOCYTE # (test code = MO#) 0.4 K/mm3 EOSINOPHIL # (test code = EO#) 0.07 K/mm3 BASOPHIL # (test code = BA#) 0.0 K/mm3 RBC MORPHOLOGY REQUIRED (test code NORMAL NORMAL = RBCM) PLATELET MORPHOLOGY REQUIRED (test NORMAL NORMAL code = PLTMR) - XR CHEST 2 [id number] 16:42:00 Patient Name: ELGIN CARABALLO Unit No: [id number] EXAMS: CPT CODE: [id number] XR CHEST 2 V 11609 CHEST RADIOGRAPHS - PA AND LATERAL: COMPARISON: None CLINICAL HISTORY: PRE OP The cardiopericardial silhouette is within normal limits. Lungs are clear. No vascular congestion or pneumothorax. Surgical clips are present in the upper abdomen. IMPRESSION: No acute pulmonary abnormality. at 1642 Reported and signed by: Driss Meredith MD CC: Berhane Garcia MD Technologist: RT Jacob Trnscrbd D/ ([id number]) [email or web address] Orig Print D/T: S: 10/28/2018 ([id number]) [facility] NAME: ELGIN CARABALLO Radiology Department PHYS: LUDA. - Berhane Garcia MD [address] : 1975 AGE: 43 SEX: F [place], [place] [address] LOC: [facility] PHONE #: [phone] EXAM DATE: 10/28/2018 STATUS: PRE [facility] [place] FAX #: [phone] RAD NO: Page 1 Signed Report
--- OUTSIDE RECORDS SUMMARY | 2020-05-21 14:20 | XMS REPORT | Summary of Care ---
:1975 Author Organization [facility] Address [address] [place] [address] Care Team Providers Name Role Phone Pcp, Patient Does Not Have A Primary Care Provider +[id number] 0-0000 Reason for Referral (Routine) Status Reason Specialty Diagnoses / Referred By Referred To Procedures Contact Contact Pending Patient is Obstetrics & Diagnoses Left lower quadrant abdominal pain Ovarian mass, left Anene, Review Established with Gynecology Procedures CONSULT/REFERRAL SANITATION DIRECTOR MOON Estrada a Specific [address] [address] MRI/CAT Scan (STAT) Status Reason Specialty Diagnoses / Referred By Referred To Procedures Contact Contact Closed Diagnostic Diagnoses Left lower quadrant abdominal pain Ari Pablo, Radiology Procedures CT ABDOMEN PELVIS WO 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 TOP 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 [address] [address] Reason for Visit Reason Comments Pain left side lower abdominal pa in Nausea Auth/Cert Status Reason Specialty Diagnoses / Procedures Referred By Gabe linder Referred To Contact Radiology [address] [place] [address] Phone: Fax: Encounter Details Date Type Department Care Team Description 04/19/2020 Urgent Care [facility] Family Laura Pablo FNP [address] [address] Left lower quadrant abdominal pain (Prim alicia Dx); Medicine - [place] Provider, [facility] Nausea; [address] [place] [address] Ovarian ma ss, left; Drive Acute cystit[place] [address] Allergies Active Allergy Reactions Severity [...] documented in this encounter Patient Instructions Patient InstructionsAri Pablo FNP - 04/19/2020 8:40 AM CDT Patient [...] foods again, start with small amounts of [id number], low- fat foods. These include apple sauce, [...] provider if you have: Pain for more [id number] Bloating for more than 2days Diarrhea for more [id number] A fever of 100.4F (38C) or higher, [...] increase stomach acid. Don't use aspirin or [id number] pain and fever medicines, if possible. This includes nonsteroidal anti-inflammatory drugs (NSAIDs). Lose excess weight. Finish eating at least 2 hours before you go to bed or lie down. Raise the head of your bed. [employer] last reviewed this educational content on 11/07/201819998946-5383 [employer]. [address] [place] [address], [place] [address]. All rights reserved. This information is not intended as a substitute for professional medical care. Always follow your healthcare professional's instructions. documented in this encounter Progress Notes Ari Pablo FNP - 04/19/2020 8:40 AM CDT Cc: [...] file Gets together: Not on file Attends adventism service: Not on file Active member of [...] Plan: CBC WITH DIFF, COMP. METABOLIC PANEL ([address]40), URINALYSIS, URINE CULTURE, CT ABDOMEN PELVIS WO [...] of the visit time. If applicable, the [place] [employer] database was accessed to review any controlled substance prescription claims data. The [employer] prescription claims data in [employer] was reviewed to assess patient compliance with the medication treatment plan. documented in this encounter Miscellaneous Notes Addendum Note - Ari Pablo FNP - 04/19/2020 8:40 AM CDT Addended by: MOON PABLO DNP-ARI ALVAREZ on: 04/19/2020 04:46 PM Modules accepted: Orders documented in this encounter Plan of Treatment Name Type Priority Associated Diagnoses Date/Ti me URINE CULTURE LAB Routine Left lower quadrant abdomin al 04/19/2020 9:23 AM CDT pain Health Maintenance Due Date Last Done Comments PNEUMOCOCCAL 0-64 YEARS COMBINED SERIES (1 of 3 - 1982 PCV13) Depression Screening 1988 DTaP,Tdap,and Td Vaccines (1 - Tdap) 1995 PAP SMEAR 1997 Breast Cancer Screening (MAMMOGRAM) 2016 INFLUENZA VACCINE (#1) 2020 documented as of this encounter Procedures Procedure Name Priority Date/Time Associated Comments Diagnosis URINALYSIS Routine 04/19/2020 9:23 AM Left lower quadrant R esults for this CDT abdominal pain procedure are in the results section. CBC WITH DIFF Routine 04/19/2020 9:23 AM Left lower quadrant Results for this CDT abdominal pain procedure are in the results section. COMP. METABOLIC Routine 04/19/2020 9:23 AM Left lower quadran t Results for this PANEL (10348) CDT abdominal pain procedure ar e in the results section. documented in this encounter Results CT ABDOMEN [...] Lexie Major I, Lauren Cordova MD., have reviewe d this study and [...] Dictated by Resident: Lauren Larson MD., have reviewed this study and agree with the above report. Performing Organization Address [facility]/Zipcode Phone Number PACS/VR/DOSE URINALYSIS (04/19/2020 9:23 AM CDT) Pathologist Sig nature APPEARANCE Clear Clear [facility] COLOR Straw (A) Yellow [facility] PH 7.0 4.8 - 8.0 [facility] SP GRAVITY 1.006 1.003 - 1.030 [facility] GLU U QUAL Normal Normal [facility] BLOOD Negative Negative [facility] KETONES Negative Negative [facility] PROTEIN Negative Negative [facility] UROBILIN Normal Normal [facility] BILIRUBIN Negative Negative [facility] NITRITE Negative Negative [facility] LEUK CASTRO Negative Negative [facility] RBC/HPF <1 0 - 3 HPF [facility] WBC/HPF 0 0 - 5 HPF [facility] BACTERIA Few (A) Negative [facility] SQ EPITH 2 HPF [facility] Specimen Urine Performing Organization Address [facility]/Zipcode Phone Number [facility] CLIA: [id number] [place] [address] COMP. METABOLIC PANEL (61979) (04/19/2020 9:23 AM CDT) Pathologist Sig nature NA 142 135 - 145 [facility] mmol/L [facility] K 5.4 (H) 3.5 - 5.0 [facility] mmol/L [facility] CL 103 98 - 108 mmol/L [facility] CO2 TOTAL 29 23 - 31 mmol/L [facility] AGAP 10 2 - 16 [facility] BUN 9 7 - 23 mg/dL [facility] GLUCOSE 95 70 - 110 mg/dL [facility] CREATININE 0.65 0.50 - 1.04 [facility] mg/dL [facility] TOTAL BILI 0.7 0.1 - 1.1 mg/dL [facility] CALCIUM 9.7 8.6 - 10.6 [facility] mg/dL [facility] T PROTEIN 7.1 6.3 - 8.2 g/dL [facility] ALBUMIN 4.1 3.5 - 5.0 g/dL [facility] ALK PHOS 85 34 - 122 U/L [facility] ALTv 13 5 - 35 U/L [facility] AST(SGOT) 21 13 - 40 U/L [facility] eGFR Calculation 99.5 mL/min/1.73m2 [facility] (Non[facility] [place]) eGFR Calculation 120.6 mL/min/1.73m2 [facility] () [facility] Specimen Blood Narrative Performed At [facility] Glomerular Filtration Rate (GFR) [facility] and Staging of Kidney Disease* + + +- + | GFR (mL/min/1.73 m2) | With Kidney Damage | Without Kidney Damage + + +- + | >90 | Stage one | Normal + + +- + | 60-89 | Stage two | Decreased GFR + + +- + | 30-59 | Stage three | Stage three + + +- + | 15-29 | Stage four | Stage four + + +- + | <15 (or dialysis) | Stage five | Stage five + + +- + *Each stage assumes the associated GFR level has been in effect for at least three months. Stages 1 to 5, with or without kidney disease, indicate chronic kidney disease. Notes: Determination of stages one and two (with eGFR >59mL/min/1.73 m2) requires estimation of kidney damage for at least three months as defined by structural or functional abnormalities of the kidney, manifested by either: Pathological abnormalities or Markers of kidney damage (including abnormalities in the composition of the blood or urine or abnormalities in imaging tests). Performing Organization Address City/State/Zipcode Phone Number [facility] CLIA: [id number] [place], [place] [id number] LAB[address]AT[address] CBC WITH DIFF (04/19/2020 9:23 AM CDT) Pathologist Sig nature WBC 4.24 (L) 4.30 - 11.10 [facility] 10*3/L [facility] RBC 3.77 (L) 3.93 - 5.25 [facility] 10*6/L [facility] HGB 11.6 11.6 - 15.0 [facility] g/dL [facility] HCT 36.4 35.7 - 45.2 % [facility] MCV 96.6 (H) 80.6 - 95.5 fL [facility] MCH 30.8 25.9 - 32.8 pg [facility] MCHC 31.9 31.6 - 35.1 [facility] g/dL [facility] RDW-SD 43.5 39.0 - 49.9 fL [facility] RDW-CV 12.3 12.0 - 15.5 % [facility] PLT 288 166 - 358 [facility] 10*3/L [facility] MPV 10.8 9.5 - 12.9 fL [facility] NRBC/100 WBC 0.0 0.0 - 10.0 /100 [facility] WBCs [facility] NRBC x10^3 <0.01 10*3/L [facility] GRAN MAT (NEUT) % 56.5 % [facility] IMM GRAN % 0.20 % [facility] LYMPH % 34.7 % [facility] MONO % 6.8 % [facility] EOS % 0.9 % [facility] BASO % 0.9 % [facility] GRAN MAT x10^3(ANC) 2.39 1.88 - 7.09 [facility] 10*3/uL [facility] IMM GRAN x10^3 <0.03 0.00 - 0.06 [facility] 10*3/uL [facility] LYMPH x10^3 1.47 1.32 - 3.29 [facility] 10*3/uL [facility] MONO x10^3 0.29 (L) 0.33 - 0.92 [facility] 10*3/uL [facility] EOS x10^3 0.04 0.03 - 0.39 [facility] 10*3/uL [facility] BASO x10^3 0.04 0.01 - 0.07 [facility] 10*3/uL [facility] Specimen Blood Performing Organization Address City/State/Zipcode Phone Number [facility] CLIA: [id number] [place] [address] documented in this encounter Visit Diagnoses Diagnosis Left lower quadrant abdominal pain - Alyssia catalina Nausea Nausea alone Ovarian mass, left Acute cystitis without hematuria Acute cystitis documented in this encounter Insurance Payer Benefit Plan Subscriber ID Effective Dates Phone Address Type / Group [employer] [employer] [place] [id number] 2019-Tiffanie [phone] [address] [place] PPO/POS [facility] [id number] [place] [address] documented as of this encounter"
[2020-05-21] MEDS ORDERED: DIPHENHYDRAMINE 50 MG/ML VIAL ONE (15:56)
[2020-05-21] MEDS ORDERED: METOCLOPRAMIDE 10 MG/2mL INJ ONE (15:56)
[2020-05-21] MEDS ORDERED: KETOROLAC 30 MG/ML INJ ONE (15:57)
[2020-05-21] MEDS ORDERED: NA CHLORIDE 0.9% 1,000 ML ONE (15:57)
--- NOTE | 2020-05-21 16:37 | RAD REPORT ---
EXAM DESCRIPTION: CT - Head Brain Wo Cont - 05/21/2020 4:00 pm CLINICAL HISTORY: HEADACHE COMPARISON: No comparisons TECHNIQUE: Axial 5 mm thick images of the head were obtained without IV contrast. All CT scans are performed using dose optimization technique as appropriate and may include automated exposure control or mA/KV adjustment according to patient size. FINDINGS: No intracranial hemorrhage, mass, edema or shift of mid-line structures. No acute infarcti on changes seen. No abnormal extra-axial fluid collections. Ventricles are normal. Mastoid air cells and visualized portions of the paranasal sinuses are clear. No acute bony findings. IMPRESSION: Negative non-contrast CT head examination.
--- NOTE | 2020-05-21 17:08 | ER ---
Nurse's Notes [facility] Name: Mary Ibarra Age: 44 yrs Sex: Female : 1975 Arrival Date: 05/21/2020 Time: 14:14 Bed 14 Private MD: Diagnosis: Headache Presentation: 05/21 14:18 Chief complaint: Patient states: "I have had a headache since Wednesday and it just jd3 hasn't gone away. I used to get these headaches when I was younger, but none that have lasted this long.". Coronavirus screen: At this time, the client does not indicate any symptoms associated with coronavirus-19. Ebola Screen: Patient negative for fever greater than or equal to 101.5 degrees Fahrenheit, and additional compatible Ebola Virus Disease symptoms. Initial Sepsis Screen: Does the patient meet any 2 criteria? No. Patient's initial sepsis screen is negative. Does the patient have a suspected source of infection? No. Patient's initial sepsis screen is negative. Risk Assessment: Do you want to hurt yourself or someone else? Patient reports no desire to harm self or others. Onset of symptoms was May 18, 2020. 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 - Social history:: Smoking status: Patient denies any tobacco usage or history of. Screenin:30 Abuse screen: Denies threats or abuse. Denies injuries from another. Nutritional jl7 screening: No deficits noted. Tuberculosis screening: No symptoms or risk factors identified. Fall Risk IV access (20 points). Total Medina Fall Scale indicates No Risk (0-24 pts). Assessment: 16:00 General: Appears in no apparent distress. uncomfortable, Behavior is calm, cooperative, jl7 appropriate for age. Pain: Complains of pain in CUADRA Pain currently is 5 out of 10 on a pain scale. Pain began 2-3 days ago. Is continuous. Neuro: Level of Consciousness is awake, alert, obeys commands, Oriented to person, place, time, situation, Quality Assurance Inspector are equal bilaterally Moves all extremities. Full function Speech is normal, Facial symmetry appears normal. Cardiovascular: Patient's skin is warm and dry. Respiratory: Airway is patent Respiratory effort is even, unlabored, Respiratory pattern is regular, symmetrical. GI: Reports nausea. Derm: Skin is pink, warm \\T\\ dry. 17:19 Reassessment: Pt will be discharged once fluids are done infusing. jl7 18:11 Reassessment: Patient appears in no apparent distress at this time. Patient is alert, jl7 oriented x 3, equal unlabored respirations, skin warm/dry/pink. Pain rated 2/10 at this time. Patient states feeling better. Patient states symptoms have improved. Vital Signs: 14:23 BP 124 / 75; Pulse 77; Resp 16 S; Temp 98.2(O); Pulse Ox 99% on R/A; Weight 68.04 kg jd3 (R); Height 5 ft. 5 in. (165.10 cm) (R); Pain 5/10; 16:30 BP 120 / 69; Pulse 80; Resp 17; Pulse Ox 100% ; jl7 14:23 Body Mass Index 24.96 (68.04 kg, 165.10 cm) jd3 ED Course: 14:14 Patient arrived in ED. mr 14:20 Triage completed. jd3 14:23 Arm band placed on. jd3 15:05 Adriano Parsons NP is PHCP. pm1 15:05 Karthik Williamosn MD is Attending Physician. pm1 15:10 Roro Carranza, RN is Primary Nurse. ca1 16:01 CT Head Brain wo Cont In Process Unspecified. EDMS 16:30 Patient has correct armband on for positive identification. Placed in gown. Bed in low jl7 position. Call light in reach. Side rails up X 1. Pulse ox on. NIBP on. Warm blanket given. Pillow given. 16:30 Inserted saline lock: 20 gauge in left antecubital area, using aseptic technique. jl7 17:19 Primary Nurse role handed off by Roro Carranza RN jl7 17:19 Magy Sauer, HEAVEN is Primary Nurse. jl7 18:11 No provider procedures requiring assistance completed. IV discontinued, intact, jl7 bleeding controlled, No redness/swelling at site. Pressure dressing applied. Administered Medications: 16:25 Drug: TORadol - Ketorolac 15 mg Route: IVP; Site: left antecubital; jl7 18:11 Follow up: Response: No adverse reaction; Pain is decreased jl7 16:25 Drug: NS 0.9% 1000 ml Route: IV; Rate: 1000 ml; Site: left antecubital; jl7 18:00 Follow up: Response: No adverse reaction; IV Status: Completed infusion; IV Intake: jl7 1000ml 16:27 Drug: Benadryl 25 mg Route: IVP; Site: left antecubital; jl7 18:11 Follow up: Response: No adverse reaction; Pain is decreased jl7 16:31 Drug: Reglan 10 mg Route: IVP; Site: left antecubital; jl7 18:11 Follow up: Response: No adverse reaction; Pain is decreased jl7 Intake: 18:00 IV: 1000ml; Total: 1000ml. jl7 Outcome: 17:08 Discharge ordered by MD. pm1 18:11 Discharged to home ambulatory. jl7 18:11 Condition: stable 18:11 Discharge instructions given to patient, Instructed on discharge instructions, follow up and referral plans. medication usage, Demonstrated understanding of instructions, follow-up care, medications, Prescriptions given X 2. 18:13 Patient left the ED. jl7 Signatures: Dispatcher [employer] [facility] Annabelle Ga MarinaAdriano giraldo, DESIGN DRAFTER CHIEF DESIGN DRAFTER CHIEF pm1 Magy Sauer, HEAVEN RN jl7 Daquan Lockett RN RN jd3 oRro Carranza RN RN ca1 Corrections: (The following items were deleted from the chart) 17:18 14:27 Benadryl 25 mg IVP in left antecubital jl7 jl7 17:18 14:25 NS 0.9% 1000 ml IV at 1000 ml in left antecubital jl7 jl7 17:19 14:25 TORadol - Ketorolac 15 mg IVP in left antecubital jl7 jl7
--- NOTE | 2020-05-21 17:08 | EDPHYS ---
Physician Documentation [facility] Name: Mary Ibarra Age: 44 yrs Sex: Female : 1975 Arrival Date: 05/21/2020 Time: 14:14 Bed 14 Private MD: ED Physician Karthik Williamson HPI: 05/21 15:37 This 44 yrs old Female presents to ER via Ambulatory with complaints of pm1 Headache. 15:37 The patient complains of pain to the left side of the back of head, left occipital pm1 area, left base of the skull, right side of the back of head and right occipital area, and left trapezius. The patient describes the headache as aching, constant. Onset: The symptoms/episode began/occurred 4 day(s) ago. Associated signs and symptoms: Pertinent positives: nausea, Pertinent negatives: fever, neck stiffness, vision changes, vomiting, weakness. Severity of symptoms: in the emergency department the pain is unchanged. Headache History: Other 3 years ago. It was when she found out that she was allergic to pepcid. The symptoms are alleviated by nothing. the symptoms are aggravated by nothing. The patient has not recently seen a physician, has an appointment scheduled, for colonoscopy on Wednesday. 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 - Social history:: Smoking status: Patient denies any tobacco usage or history of. ROS: 15:37 Constitutional: Negative for fever, chills, and weight loss, Eyes: Negative for injury, pm1 pain, redness, and discharge, ENT: Negative for injury, pain, and discharge. 15:37 Cardiovascular: Negative for chest pain, palpitations, and edema, Respiratory: Negative for shortness of breath, cough, wheezing, and pleuritic chest pain, Back: Negative for injury and pain, : Negative for injury, bleeding, discharge, and swelling, MS/Extremity: Negative for injury and deformity, Skin: Negative for injury, rash, and discoloration. 15:37 Neck: Positive for of the left trapezius, pain. 15:37 Neuro: Positive for headache, Negative for numbness, tingling, weakness. Exam: 15:37 Constitutional: This is a well developed, well nourished patient who is awake, alert, pm1 and in no acute distress. Head/Face: Normocephalic, atraumatic. Neck: Trachea midline, no thyromegaly or masses palpated, and no cervical lymphadenopathy. Supple, full range of motion without nuchal rigidity, or vertebral point tenderness. No Meningismus. 15:37 Skin: Warm, dry with normal turgor. Normal color with no rashes, no lesions, and no evidence of cellulitis. MS/ Extremity: Pulses equal, no cyanosis. Neurovascular intact. Full, normal range of motion. 15:37 Cardiovascular: Exam negative for acute changes, Rate: normal, Rhythm: regular, Pulses: no pulse deficits are appreciated, Edema: is not appreciated. 15:37 Respiratory: Exam negative for acute changes, respiratory distress, shortness of breath. 15:37 Neuro: Exam negative for acute changes, Orientation: is normal, Mentation: is normal, Motor: is normal, moves all fours, strength is normal, strength is 5/5 in all extremities. Vital Signs: 14:23 BP 124 / 75; Pulse 77; Resp 16 S; Temp 98.2(O); Pulse Ox 99% on R/A; Weight 68.04 kg jd3 (R); Height 5 ft. 5 in. (165.10 cm) (R); Pain 5/10; 16:30 BP 120 / 69; Pulse 80; Resp 17; Pulse Ox 100% ; jl7 14:23 Body Mass Index 24.96 (68.04 kg, 165.10 cm) jd3 MDM: 15:21 Patient medically screened. pm1 17:05 Data reviewed: vital signs. Data interpreted: Pulse oximetry: on room air is 100 %. pm1 Interpretation: normal. Counseling: I had a detailed discussion with the patient and/or guardian regarding: the historical points, exam findings, and any diagnostic results supporting the discharge/admit diagnosis, radiology results, the need for outpatient follow up, to return to the emergency department if symptoms worsen or persist or if there are any questions or concerns that arise at home. 17:05 ED course: Patient's original pain was 5/10 and is now 3/10 with interventions given. pm1 Patient feels ready to go home and will be discharged home with pain and anti-nausea medications. 05/21 15:37 Order name: CT Head Brain wo Cont; Complete Time: 16:51 pm1 05/21 15:37 Order name: IV Saline Lock; Complete Time: 16:31 pm1 Administered Medications: 16:25 Drug: TORadol - Ketorolac 15 mg Route: IVP; Site: left antecubital; jl7 18:11 Follow up: Response: No adverse reaction; Pain is decreased jl7 16:25 Drug: NS 0.9% 1000 ml Route: IV; Rate: 1000 ml; Site: left antecubital; jl7 18:00 Follow up: Response: No adverse reaction; IV Status: Completed infusion; IV Intake: jl7 1000ml 16:27 Drug: Benadryl 25 mg Route: IVP; Site: left antecubital; jl7 18:11 Follow up: Response: No adverse reaction; Pain is decreased jl7 16:31 Drug: Reglan 10 mg Route: IVP; Site: left antecubital; jl7 18:11 Follow up: Response: No adverse reaction; Pain is decreased jl7 Disposition: 18:30 Co-signature as Attending Physician, Karthik Williamson MD. rn Disposition: 05/21/20 17:08 Discharged to Home. Impression: Headache. - Condition is Stable. - Discharge Instructions: General Headache Without Cause. - Prescriptions for Zofran ODT 4 mg Oral tablet,disintegrating - place 1 tablet by TRANSLINGUAL route every 8 hours As needed; 12 tablet. Fiorinal 50- 325-40 mg Oral Capsule - take 1 capsule by ORAL route every 4 hours As needed - not to exceed 6 capsules per day; 20 capsule. - Medication Reconciliation Form, Thank You Letter, Antibiotic Education, Prescription Opioid Use form. - Follow up: Emergency Department; When: As needed; Reason: Worsening of condition. Follow up: Private Physician; When: 2 - 3 days; Reason: Recheck today's complaints, Continuance of care, Re-evaluation by your physician. - Problem is new. - Symptoms have improved. Signatures: Dispatcher [employer] EDMS Karthik Williamson MD MD rn Marinas, Patrick, VENTILATED RIB FITTER VENTILATED RIB FITTER pm1 Magy Sauer RN RN jl7 Daquan Lockett RN RN jd3 Corrections: (The following items were deleted from the chart) 18:13 17:08 05/21/2020 17:08 Discharged to Home. Impression: Headache. Condition is Stable. jl7 Forms are Medication Reconciliation Form, Thank You Letter, Antibiotic Education, Prescription Opioid Use. Follow up: Emergency Department; When: As needed; Reason: Worsening of condition. Follow up: Private Physician; When: 2 - 3 days; Reason: Recheck today's complaints, Continuance of care, Re-evaluation by your physician. Problem is new. Symptoms have improved. pm1
[2020-05-21 19:07] VITALS: TEMP 98.2
[2020-05-21 19:08] VITALS: BP 120/69; O2SAT 100
== END 2020-05-21 18:13 | disposition home or self-care (01) ==
LOC: ER 14:03
DX: R51.9 Headache, unspecified (principal); Z88.5 Allergy status to narcotic agent; Z88.8 Allergy status to other drugs, medicaments and biological substances
CPT/HCPCS: 96361; 70450; 96375; 96374; 99284; J2765; J1200; J7030

== ENCOUNTER 2024-06-17 18:51 | Emergency (ER) | payer BC, OTHER ==
[~2024-06-17 18:51] MED LIST: D50W 25 GM/50 ML SYRINGE IV ONE
--- NOTE | 2024-06-17 20:21 | RAD REPORT ---
EXAMINATION: ONE VIEW CHEST XR CLINICAL INDICATION: Female, 48 years old.COUGH TECHNIQUE: 1 View, AP supine, X-ray of the chest was performed. [id number]. COMPARISON: 07/10/2018 FINDINGS: Lungs and pleura: Clear lungs. No effusion. Heart and mediastinum: Normal heart size. Unremarkable mediastinal contours. Osseous structures: No acute abnormality. Tubes/lines: None Other: None. IMPRESSION: No acute intrathoracic abnormality.
[2024-06-17 20:52] LABS: Absolute Lymphocytes (CBC) 1.4 K/uL (0.7-4.9); Absolute Monocytes 0.3 K/uL (0.1-1.3); Absolute Neutrophil 3.9 K/uL (1.8-8.0); Basophils % 0.5 % (0-1.3); Eosinophils % 0.7 % (0-4.4); Hematocrit 35.9 % (36.0-45.0); Hemoglobin 12.4 g/dL (12.0-15.0); Lymphocytes % 25.1 % (15.3-44.8); MCH 31.9 pg (27.0-35.0); MCHC 34.4 g/dL (32.0-36.0); MCV 92.8 fL (80-100); MPV 7.9 fL (7.6-11.3); Neutrophils % 68.7 % (41.7-73.7); Nucleated Red Blood Cells % 0.2 % (0-0); Platelets 291 thou/uL (152-406); RBC Red Blood Cell Count 3.87 M/uL (3.86-4.86); Red Cell Distribution Width 13.3 % (12.1-15.2)
[2024-06-17 21:08] LABS: Anion Gap 8.4 mEq/L (5.0-15.0); Potassium 3.4 mEq/L (3.5-5.1); Troponin High Sensitivity 4.4 pg/mL (<58.9)
[2024-06-17 21:15] LABS: Thyroid Stimulating Hormone 1.66 uIU/mL (0.358-3.740)
--- NOTE | 2024-06-17 21:48 | RAD REPORT ---
EXAMINATION: CTA CHEST PE CLINICAL INDICATION: Female, 48 years old. chest pain, sob TECHNIQUE: This examination was performed according to an angiographic protocol with 3D post-processi ng. This involves 3D reconstructions, MIPs, volume rendered images and/or shaded surface rendering. One or more of the following dose reduction techniques were used: Automated exposure control, adjustm ent of the mA and/or kV according to patient size, and/or iterative reconstruction. Unless otherwise specified, incidental findings do not require dedicated imaging follow-up. [id number]. COMPARISON: 07/10/2018 FINDINGS: LOWER NECK: Visualized thyroid gland and soft tissues are normal. LUNGS AND AIRWAYS: Airways are clear. No evidence of airspace or interstitial process. No nodules. PLEURA: No pleural effusion. No pneumothorax. Hemidiaphragms are normally positioned. MEDIASTINUM AND LYMPH NODES: No mediastinal mass or fluid collection. Normal size mediastinal, hilar, and axillary lymph nodes. THORACIC AORTA: Normal caliber and configuration. PULMONARY ARTERIES: No evidence of pulmonary embolism. HEART: Normal heart size. No pericardial effusion. No coronary calcifications. OSSEOUS STRUCTURES AND CHEST WALL: Intact. UPPER ABDOMEN: Hemangioma in the posterior aspect of the right hepatic lobe. Cholecystectomy. IMPRESSION: No evidence of pulmonary emboli to the subsegmental level. Lungs are clear.
--- NOTE | 2024-06-17 22:09 | ER ---
Nurse's Notes [facility] Name: Mary Ibarra Age: 48 yrs Sex: Female : 1975 Arrival Date: 06/17/2024 Time: 18:51 Bed 16 Private MD: Diagnosis: Chest pain, unspecified;Palpitations Presentation: 06/17 19:21 Chief complaint: Patient states: Pt c/o episode of tachycardia with chest tl4 pressure/tightness that is now resolved. Pt states she has been having similar episodes without diagnosis yet. Coronavirus screen: At this time, the client does not indicate any symptoms associated with coronavirus-19. Ebola Screen: No symptoms or risks identified at this time. Initial Sepsis Screen: Does the patient meet any 2 criteria? No. Patient's initial sepsis screen is negative. Does the patient have a suspected source of infection? No. Patient's initial sepsis screen is negative. Risk Assessment: Do you want to hurt yourself or someone else? Patient reports no desire to harm self or others. Onset of symptoms is unknown. 19:21 Method Of Arrival: Ambulatory tl4 19:21 Acuity: BIB 3 tl4 Triage Assessment: 19:32 General: Appears in no apparent distress. Behavior is calm, cooperative. Pain: Denies tl4 pain. EENT: No signs and/or symptoms were reported regarding the EENT system. Neuro: Level of Consciousness is awake, alert, obeys commands, Oriented to person, place, time, situation, Moves all extremities. Full function Gait is steady, Speech is normal, Facial symmetry appears normal. Cardiovascular: Reports chest pain, fatigue, palpitations, Capillary refill < 3 seconds Patient's skin is warm and dry. Respiratory: Airway is patent Respiratory effort is even, unlabored, Respiratory pattern is regular, symmetrical, Breath sounds are clear bilaterally. GI: No signs and/or symptoms were reported involving the gastrointestinal system. : No signs and/or symptoms were reported regarding the genitourinary system. Derm: No signs and/or symptoms reported regarding the dermatologic system. Musculoskeletal: No signs and/or symptoms reported regarding the musculoskeletal system. 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 - Infectious Disease History:: Denies. - Social history:: Smoking status: Patient denies any tobacco usage or history of. Screenin:34 [facility] ED Fall Risk Assessment (Adult) History of falling in the last 3 months, tl4 including since admission No falls in past 3 months (0 pts) Confusion or Disorientation No (0 pts) Intoxicated or Sedated No (0 pts) Impaired Gait No (0 pts) Mobility Assist Device Used No (0 pt) Altered Elimination No (0 pt) Score/Fall Risk Level 0 - 2 = Low Risk Oriented to surroundings, Maintained a safe environment, Educated pt \T\ family on fall prevention, incl call for assistance when getting out of bed, Assessed \T\ reinforced patient's understanding of fall precautions. Abuse screen: Denies threats or abuse. Denies injuries from another. Nutritional screening: No deficits noted. Tuberculosis screening: No symptoms or risk factors identified. Vital Signs: 19:21 BP 142 / 86; Pulse 76; Resp 18; Temp 98.2(O); Pulse Ox 100% on R/A; Weight 72.57 kg; tl4 Height 5 ft. 0 in. ; Pain 0/10; 19:33 BP 122 / 83; Pulse 67; Resp 18; Pulse Ox 99% on R/A; tl4 20:00 BP 130 / 69; Pulse 75; Resp 19; Pulse Ox 100% on R/A; tl4 20:30 BP 116 / 74; Pulse 65; Resp 19; Pulse Ox 100% on R/A; tl4 21:00 BP 129 / 88; Pulse 66; Resp 18; Pulse Ox 99% on R/A; tl4 22:00 BP 126 / 72; Pulse 78; Resp 18; Temp 97.9(O); Pulse Ox 100% on R/A; Pain 0/10; tl4 19:21 Body Mass Index 31.25 (72.57 kg, 152.4 cm) tl4 19:21 Pain Scale: Adult tl4 22:00 Pain Scale: Adult tl4 Vitals: 19:33 Cardiac Rhythm Assessment Regular Sinus rhythm. tl4 ED Course: 18:55 Patient arrived in ED. ra3 19:03 Marito Clark MD is Attending Physician. ec2 19:25 Triage completed. tl4 19:33 Arm band placed on right wrist. tl4 19:34 Patient has correct armband on for positive identification. Placed in gown. Bed in low tl4 position. Call light in reach. Side rails up X 1. Adult w/ patient. Provided Education on: ed process, call resendiz. Client placed on continuous cardiac and pulse oximetry monitoring. NIBP monitoring applied. youth nutritional monitor on. Door closed. Noise minimized. Lights dimmed. Moved to private room. Warm blanket given. 19:34 No provider procedures requiring assistance completed. tl4 19:35 Barrett Nice, RN is Primary Nurse. tl4 19:35 EKG done, by ED staff, reviewed by Marito Clark MD. tl4 20:16 XRAY Chest (1 view) In Process Unspecified. EDMS 20:44 Initial lab(s) drawn, by hi, sent to lab. Inserted saline lock: 20 gauge in left bm8 antecubital area, using aseptic technique. Blood collected. Flushed with 10 mL NS. 20:51 Basic Metabolic Panel Sent. tl4 20:51 CBC with Diff Sent. tl4 20:51 Troponin HS Sent. tl4 20:51 T4 Free Sent. tl4 20:51 TSH Sent. tl4 21:25 CT Chest For PE Angio In Process Unspecified. EDMS 22:29 IV discontinued, intact, bleeding controlled, No redness/swelling at site. Pressure tl4 dressing applied. Administered Medications: No medications were administered Medication: 19:33 VIS not applicable for this client. tl4 Outcome: 22:08 Discharge ordered by . ec2 22:29 Discharged to home ambulatory, with family, tl4 22:29 Condition: stable 22:29 Discharge instructions given to patient, Instructed on discharge instructions, follow up and referral plans. Demonstrated understanding of instructions, follow-up care, 22:29 Patient left the ED. tl4 Signatures: Dispatcher [employer] EDMS Marito Clark MD MD ec2 Barrett Nice, HEAVEN RN tl4 Charis Jacobsen ra3 Dony Israel, RN RN bm8
--- NOTE | 2024-06-17 22:09 | EDPHYS ---
Physician Documentation [facility] Name: Mary Ibarra Age: 48 yrs Sex: Female : 1975 Arrival Date: 06/17/2024 Time: 18:51 Bed 16 Private MD: ED Physician Marito Clark HPI: 06/17 19:40 This 48 yrs old Female presents to ER via Ambulatory with complaints of High ec2 heart rate. 19:40 Patient arrives today for evaluation of chest tightness and palpitations that started ec2 earlier this evening. Patient reports that she has had a history of similar, has seen cardiology and has had negative stress test and echo. Patient denies any active symptoms at this time. Symptoms have since resolved. She states sometimes she noticed some bluish discoloration on the bilateral hands.. 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 - Infectious Disease History:: Denies. - Social history:: Smoking status: Patient denies any tobacco usage or history of. ROS: 19:41 Constitutional: as per hpi ec2 Exam: 19:41 Constitutional: GEN: NAD Head: atraumatic Eyes: EOMI Ears: External ears are ec2 normal. CV: regular rate LUNGS: no respiratory distress, no wheezes, no rales, no rhonchi ABD: non-distended SKIN: no evidence of rashes MSK: no evidence of trauma Vital Signs: 19:21 BP 142 / 86; Pulse 76; Resp 18; Temp 98.2(O); Pulse Ox 100% on R/A; Weight 72.57 kg; tl4 Height 5 ft. 0 in. ; Pain 0/10; 19:33 BP 122 / 83; Pulse 67; Resp 18; Pulse Ox 99% on R/A; tl4 20:00 BP 130 / 69; Pulse 75; Resp 19; Pulse Ox 100% on R/A; tl4 20:30 BP 116 / 74; Pulse 65; Resp 19; Pulse Ox 100% on R/A; tl4 21:00 BP 129 / 88; Pulse 66; Resp 18; Pulse Ox 99% on R/A; tl4 22:00 BP 126 / 72; Pulse 78; Resp 18; Temp 97.9(O); Pulse Ox 100% on R/A; Pain 0/10; tl4 19:21 Body Mass Index 31.25 (72.57 kg, 152.4 cm) tl4 19:21 Pain Scale: Adult tl4 22:00 Pain Scale: Adult tl4 MDM: 19:22 ED course: EKG independently reviewed and interpreted by me, shows normal sinus rhythm, ec2 rate 67, no acute ST segment elevations, intervals are nonactionable.. 19:26 Medical Screening Exam initiated ec2 19:42 Data reviewed: vital signs. ED course: Patient arrives today for chest pain and ec2 palpitations. Examination remarkable for well-appearing nontoxic dividual's otherwise in no acute distress with a reassuring examination. Will obtain lab work, EKG, chest x-ray as well as CT scan of the chest. Evaluating for vascular pathology, ACS, electrolyte disturbances, anemia.. 21:50 ED course: CT scan of the chest shows no evidence of PE or large vascular pathology.. ec2 06/17 19:22 Order name: Basic Metabolic Panel; Complete Time: 21:19 ec2 06/17 19:22 Order name: CBC with Diff; Complete Time: 21:19 ec2 06/17 19:22 Order name: Troponin HS; Complete Time: 21:19 ec2 06/17 19:42 Order name: TSH; Complete Time: 21:19 ec2 06/17 19:42 Order name: T4 Free; Complete Time: 21:19 ec2 06/17 19:22 Order name: XRAY Chest (1 view); Complete Time: 20:46 ec2 06/17 19:41 Order name: CT Chest For PE Angio; Complete Time: 21:49 ec2 06/17 19:22 Order name: EKG; Complete Time: 19:22 ec2 06/17 19:22 Order name: Cardiac monitoring; Complete Time: 19:35 ec2 06/17 19:22 Order name: EKG - Nurse/Tech; Complete Time: 19:35 ec2 06/17 19:22 Order name: IV Saline Lock; Complete Time: 20:51 ec2 06/17 19:22 Order name: Labs collected and sent; Complete Time: 20:51 ec2 06/17 19:22 Order name: O2 Per Protocol; Complete Time: 19:35 ec2 06/17 19:22 Order name: O2 Sat Monitoring; Complete Time: 19:35 ec2 Administered Medications: No medications were administered Disposition Summary: 06/17/24 22:08 Discharge Ordered Notes: Location: Home ec2 Condition: Stable ec2 Diagnosis - Chest pain, unspecified ec2 - Palpitations ec2 Followup: ec2 - With: Private Physician - When: - Reason: Re-evaluation by your physician Discharge Instructions: - Discharge Summary Sheet ec2 - Nonspecific Chest Pain, Adult ec2 - Palpitations ec2 Forms: - Medication Reconciliation Form ec2 - Antibiotic Education ec2 - Prescription Opioid Use ec2 - Patient Portal Instructions ec2 - Leadership Thank You Letter ec2 Signatures: Dispatcher [employer] EDMarito Guevara MD MD ec2 Barrett Nice RN RN tl4
[2024-06-17 22:58] VITALS: BP 126/72; TEMP 97.9; O2SAT 100
--- NOTE | 2024-06-18 12:40 | EKG ---
Test Date: 2024-06-17 Test Time: 19:13:47 First Officer And Flight Instructor: TL MEASUREMENT RESULTS: Intervals: Rate: 67 CT: 128 QRSD: 78 QT: 414 QTc: 437 [place]: P: 41 CT: 128 QRS: 71 T: 25 INTERPRETIVE STATEMENTS: Normal sinus rhythm Normal ECG Compared to ECG 07/10/2018 18:47:36 No significant changes Electronically Signed On 06-18-24 12:38:42 BREASTFEEDING PROGRAM COORDINATOR by Orlando Mays
== END 2024-06-17 22:29 | disposition home or self-care (01) ==
LOC: ER 18:51
DX: R07.9 Chest pain, unspecified (principal); R00.2 Palpitations
CPT/HCPCS: 93005; 85025; 80048; 36415; 84443; 84484; 84439; 71275; 71045; 99284; Q9967